=== PATIENT | male | born 1995 | race Caucasian/White ===

== ENCOUNTER 2018-09-09 13:19 | Observation (INO) | payer MEDICAID, SELFPAY ==
[2018-09-09 13:20] VITALS: BP 130/70; PULSE 63; RESP 16; TEMP 37.4; O2SAT 98; BMI 23.4
--- NOTE | 2018-09-09 13:45 | CT_ITS ---
STUDY: CT ABDOMEN AND PELVIS WITHOUT CONTRAST REASON FOR EXAM: Male, 22 years old. Nausea and vomiting. RADIATION DOSAGE (If Supplied By Facility): CTDIvol = ( 6.08 ) mGy, DLP = ( 291.48 ) mGycm TECHNIQUE: Transaxial images were obtained from the dome of the diaphragm to the symphysis pubis without oral contrast, and without intravenous contrast. Sagittal and coronal images were reconstructed. Individualized dose optimization techniques were used for this CT. COMPARISON: None. FINDINGS: Lung bases: Unremarkable. Heart: Unremarkable. Liver: Unremarkable. Gallbladder/biliary ducts: Unremarkable. Pancreas: Unremarkable. Spleen: Unremarkable. Adrenal glands: Unremarkable. Kidneys/ureters/bladder: Nonspecific slightly high density at the bilateral renal medullas (axial image 65 series 2). Nondistended ureters. Normal urinary bladder. Uterus/adnexa/prostate: Unremarkable. Large bowel/small bowel: Mild colonic underdistention/wall thickening. No significant inflammatory changes. No perforation. No pneumatosis. No obstruction. No acute small bowel process. Appendix: Unremarkable (axial image 102 series 2). Gastroesophageal junction/stomach: Unremarkable. Retroperitoneum/lymph nodes: No intra-abdominal free air. No ascites. Shotty para-aortic lymph nodes. Vascular: Unremarkable. Osseous structures: No acute process. Subcutaneous/soft tissues: No acute process. CT/Abdomen/Pelvis without Cont IMPRESSION: Nonspecific bilateral renal medullary high density (possible hyperdense urine, minimal blood products or early nephrocalcinosis; correlate urinalysis) Mild colonic underdistention/wall thickening (unlikely acute colitis) Electronically Signed: Jorge A Mcclure DO at 14:31 EDT Tel , Service support ,
[2018-09-09] MEDS: 0.9% Normal Saline 1,000 ML 1000 ML IV (13:55)
[2018-09-09] MEDS: morphine 8 MG/ML Syringe IV (13:55)
[2018-09-09] MEDS: Ondansetron 4 MG/2 ML Vial IV ×2 (13:56→16:14)
--- NOTE | 2018-09-09 14:13 | ED.VISSUMM ---
- ER Visit Summary Date of Service: 09/09/18 Chief Complaint: [] Lower abdominal pain intractable vomiting since Sunday History of Present Illness: The patient is a 22 M [] indicates that basically he has been in half-way for about 2 years, just discharged 1 week ago from [facility], he was at a friend's barbecue the of the day when he took a bite out of what he thought was some type of a rib meat food and as soon as he swallowed that he felt a sense of nausea and since that time is had intractable nausea and vomiting the food was not tainted was fully cooked it was not spicy it was not ill tasting, he has no history of GI elements, he indicates that protracted vomiting his bowel bladder habits have been unremarkable, he complains of lower abdominal cramping, he is able to take small sips of Gatorade He denies any chronic medical conditions, no abdominal surgeries, no medications Physical Examination: [] His vital signs are unremarkable see the reports General, no distress resting comfortably HEENT is generally unremarkable The neck is supple no adenopathy Cardiovascular, regular rate and rhythm Lungs, clear bilateral Abdomen, soft nontender, he subjectively complains of lower abdominal discomfort right superpubic and left complaining of cramping there is no rebound guarding organomegaly the backs unremarkable upper lower extremities unremarkable Extremities, no clubbing cyanosis or edema Neurologic, awake alert answering questions appropriately moving all 4 extremities Test Results: [] Emergency Department Course and Treatment: [] His age his complaints screening labs obtained CT His screening labs reveal a white count 20,000, there is elevation of the bilirubin to 3, the liver enzymes otherwise unremarkable, the CT scan shows no obvious acute gross abnormality except the radiologist notes that there is seems to be some abnormal texture to the patient's urine, the UA does show a very reddish type urine formal UA parameters are pending, UA culture sent, he is feeling there, he is able take slightly p.o. but given all the above white count the abnormal bilirubin the UA have asked the hospitalist specialist team for further management admission Treatment Plan: [] Disposition: [] Admit pending hospice evaluation Impression: [] Lower abdominal pain, intractable vomiting, leukocytosis, abnormal bilirubin This note was generated with [employer] dictation software. It may contain incorrect words, spelling, and punctuation that were not noted in review of the chart prior to signing ED Disposition - Plan for ED Patient: Referrals: Care Physician,No Primary [Primary Care Provider] -
[2018-09-09 14:25] LABS: Absolute Lymphocyte Count 1.96 X10^3/ul (0.83-4.51); Absolute Neutrophil Count 17.5 X10^3/uL (2.0-7.7); Basophil# 0.02 X10^3/uL; Basophil% 0.1 % (0-1); Eosinophil# 0.02 X10^3/uL; Eosinophils% 0.1 % (0-5); Hematocrit 43.4 % (40-54); Hemoglobin 15.4 g/dl (13.0-16.5); Lymphocyte # 1.96 X10^3/ul (4.0); Lymphocyte % 9.8 % (19-41); Mean Corp Hgb Conc 35.5 g/gl (32-36); Mean Corpuscular Hgb 30.1 pg (27.0-32.0); Mean Corpuscular Volume 84.9 fL (80-94); Mean Platelet Vol. 9.5 fl (6.2-12.0); Monocyte# 0.46 X10^3/uL; Monocyte% 2.3 % (0-10); Neutrophil # 17.52 X10^3/uL (2.7-7.7); Neutrophil % 87.5 % (47-70); POSITIVE COUNT NO; POSITIVE DIFFERENTIAL NO; POSITIVE MORPHOLOGY NO; Platelet Count 249 K/mm3 (150-450); RBC Distribution Width CV 13.3 % (11.6-14.6); RBC Distribution Width SD 41.6 fl (35.1-43.9); Red Blood Count 5.11 M/mm3 (4.6-6.2)
[2018-09-09 14:41] LABS: AST(SGOT) 21 U/L (15-37); Alanine Aminotransfer ALT/SGPT 29 U/L (16-61); Albumin, Serum 4.5 g/dL (3.2-5.0); Alkaline Phosphatase 77 U/L (45-117); Anion Gap 13 (5-15); BUN 21 mg/dL (7-18); BUN/Creat Ratio 23.7 RATIO (10-20); Bilirubin, Direct 0.43 mg/dL (0.00-0.30); Calcium,Total 9.5 mg/dL (8.5-10.1); Chloride 103 mmol/L (98-107); Creatinine, Serum 0.88 mg/dL (0.70-1.30); EST Glomerular Filtration Rate 113 mL/min (>60); Est Glom Filt Rate - Afr Amer 136 mL/min (>60); Estimated Creatinine Clearance 130.55 ml/min; Globulin 3.7 g/dL (2.2-4.2); Glucose 93 mg/dL (74-106); Lipase 72 U/L (73-393); Potassium 2.9 mmol/L (3.5-5.1); Protein, Total 8.2 g/dL (6.4-8.2); Sodium Level 140 mmol/L (136-145)
[2018-09-09] MEDS: 0.9% Normal Saline 1,000 ML 999 ML IV (14:56)
[2018-09-09 15:01] LABS: Red Blood Cells-Urine 0 SEEN /hpf (0-5); Squamous Epithelial Cells - UA 0 SEEN /hpf (0-5)
[2018-09-09 15:13] LABS: Color, Urine Yellow (Yellow); Glucose, Dipstick Normal (Normal); Leukocyte Esterase-Dipstick 25 /ul (Negative); Nitrite-Dipstick Negative (Negative); Occult Blood-Urine 10 /ul (Negative); Protein-Dipstick 30 mg/dl (Negative); Urine Clarity Clear (Clear); Urine Urobilinogen 4 mg/dl (Normal); Urine pH 6.5 (5.0 - 8.0)
[2018-09-09 15:14] LABS: Urine Bilirubin Dipstick 1 mg/dL (Negative)
[2018-09-09 15:15] LABS: Ketone-Dipstick 150 mg/dl (Negative)
[2018-09-09 15:21] LABS: Calcium Oxalate Crystals Ur RARE /hpf (<or=2+); Mucous, Urine 4+ /hpf (<or=2+); White Blood Cells 0-5 SEEN /hpf (0-5)
[2018-09-09 15:22] LABS: Bacteria RARE /hpf (None Seen)
[2018-09-09] MEDS: Ceftriaxone 1 GM/50 ML BAG IV (15:30)
--- NOTE | 2018-09-09 15:32 | HP.PCM_ITS ---
Problem List (1) Acute gastroenteritis Status: Acute (2) Asthma Status: Chronic Qualifiers: Asthma severity: mild Asthma persistence: intermittent Asthma complication type: uncomplicated Qualified Code(s): J45.20 - Mild intermittent asthma, uncomplicated (3) Leucocytosis Status: Acute Qualifiers: Leukocytosis type: unspecified Qualified Code(s): D72.829 - Elevated white blood cell count, unspecified (4) Hypokalemia Status: Acute History of Present Illness Date of Admission: 09/09/18 Chief Complaint: Abdominal pain. Intractable nausea and vomiting The patient is a 22 year old M with past medical history of mild intermittent asthma/seasonal allergies who comes in with complaints of abdominal discomfort, intractable nausea and vomiting ongoing since the evening of 09/07/18. He has been in his usual state of health until the evening of 09/07/18 when he tasted a piece of meat was recently grilled during a barbecue. He says he took a little bite of the meat and started having abdominal discomfort, he has since been throwing up and having crampy abdominal discomfort. He denies any fever but admits to chills. He also complains of some discomfort when he urinates with dark urine. Denies any hematemesis or diarrhea. No recent sick contacts or new medications or recent travels Vitals in the emergency department show temperature of 99.4F, heart rate 63, blood pressure 130/70, respiratory rate was 16, SPO2 was 98% on room air. His RBC count was 20.0, with a left shift, 87.5% neutrophils, hemoglobin 15.4, platelet 249, sodium 140, potassium 2.9, chloride 103, bicarbonate 24, BUN 21, creatinine 0.88, total bilirubin was 3.0, direct bilirubin was 0.43, rest of LFTs were unremarkable, lipase was 72. UA showed clear urine, ketones 150, nitrite negative, leukocyte esterase 25, WBC count 0-5 CT scan of the abdomen and pelvis shows mild colonic underdistention slight wall thickening, otherwise unremarkable Past Medical History Past Medical History (Chronic Problems): Chronic Problems Asthma (Chronic) Allergies Penicillins Allergy (Verified 09/09/18 13:20) Hives Home Medications: Ambulatory Orders Medication Instructions Recorded NK 09/09/18 Surgical History: no surgical history Psychiatric History: No pertinent psych hx Lives: Spouse/ Significant Other Smoking Status: Current every day smoker Tobacco Use: Cigarettes Alcohol: Occasional Drugs: Marijuana - *Family History Maternal History Items: No pertinent history Paternal History Items: No pertinent history Review of Systems Constitutional: Reports: Anorexia, Chills, Malaise, Weakness, Fatigue. Denies: Fever, Night Sweats, Weight Change Eyes: Denies: Blurred vision, Cataracts, Conjunctivae Inflammation, Pain, Redness, Vision Change HEENT: Denies: Difficulty Hearing, Difficulty Swallowing, Head Aches, Hearing Changes, Sinus Drainage, Sore Throat Cardiovascular: Denies: Chest Pain, Claudication, Orthopnea, Palpitations, Paroxysmal Noc. Dyspnea Respiratory: Denies: Cough, Shortness of breath upon exertion, Sputum production Gastrointestinal: Reports: Abdominal Pain, Nausea, Vomiting. Denies: Diarrhea, Dyspepsia, Hematemesis, Hematochezia, Melena Genitourinary: Reports: Dysuria. Denies: Frequency, Hematuria, Incontinence, Nocturia, Retention Musculoskeletal: Denies: Joint stiffness, Joint swelling, Joint Tenderness Skin: Denies: Dryness, Jaundice, Lesions Neurological: Denies: Balance problems, Difficulty swallowing, Focal weakness Psychiatric: Denies: Anxiety, Depression Endocrine: Denies: Change in Body Habitus VTE Information - Inpt Only VTE Present on Admission: No VTE Pharm Prophylaxis ordered?: Yes Patient Problems: Active and Suspected Problems Acute gastroenteritis (Acute) Leucocytosis (Acute) Hypokalemia (Acute) - Physical Exam General: Alert, Oriented x3, Cooperative, No apparent distress HEENT: Atraumatic, PERRLA, EOMI, Normocephalic Oral: Dry Mucosa Neck: Supple, No JVD, Negative Carotid Bruits Lungs: Clear to auscultation, Normal air movement Cardiovascular: Regular rate, Regular Rhythm, Normal S1, Normal S2, No murmurs Abdomen: Bowel Sounds Present, Soft, No Hepato-splenomegaly, Tender - mild generalised tenderness Extremities: No edema Skin: No rashes, No breakdown Musculoskeletal: No Tenderness to Palpation of Joints or Extremities Lymphatic: No Cervical, Supraclavicular, or Inguinal Adenopathy Neurological: Cranial nerves II-XII grossly intact, Neuro grossly intact Psych/Mental Status: Normal Affect, Appropriate Vital Signs Temp Pulse Resp BP Pulse Ox 99.4 F H 63 16 130/70 H 98 09/09/18 13:20 09/09/18 13:20 09/09/18 13:20 09/09/18 13:20 09/09/18 13:20 Oxygen Delivery Method Room Air Weight: 72.121 kg Body Mass Index (BMI) 23.4 Laboratory Tests Past 24 Hrs 09/09/18 09/09/18 09/09/18 14:00 14:00 14:58 WBC 20.0 H RBC 5.11 Hgb 15.4 Hct 43.4 MCV 84.9 MCH 30.1 MCHC 35.5 RDW 13.3 RDW Differential 41.6 Plt Count 249 MPV 9.5 Immature Gran % (Auto) 0.200 Neut % (Auto) 87.5 H Lymph % (Auto) 9.8 L [place] % (Auto) 2.3 Eos % (Auto) 0.1 Baso % (Auto) 0.1 Absolute Neuts (auto) 17.5 H Absolute Lymphs (auto) 1.96 Total Counted Not Reportable Sodium 140 Potassium 2.9 L Chloride 103 Carbon Dioxide 24.0 Anion Gap 13 BUN 21 H Creatinine 0.88 Estim Creat Clear Calc 130.55 Est GFR (MDRD) Af Amer 136 Est GFR (MDRD) Non-Af 113 BUN/Creatinine Ratio 23.7 H Glucose 93 Calcium 9.5 Total Bilirubin 3.00 H Direct Bilirubin 0.43 H AST 21 ALT 29 Alkaline Phosphatase 77 Total Protein 8.2 Albumin 4.5 Globulin 3.7 Lipase 72 L Urine Color Yellow Urine Clarity Clear Urine pH 6.5 Ur Specific [place] 1.020 Urine Protein 30 H Urine Glucose (UA) Normal Urine Ketones 150 H Urine Occult Blood 10 H Urine Nitrite Negative Urine Bilirubin 1 H Urine Urobilinogen 4 H Ur Leukocyte Esterase 25 H Urine RBC Pending Urine WBC Pending Ur Squamous Epith Cells Pending Urine Bacteria Pending Urine Mucus Pending Assessment/Plan All Active Problems Acute gastroenteritis (Acute) Leucocytosis (Acute) Hypokalemia (Acute) 22 year old M with past medical history of mild intermittent asthma/seasonal allergies who comes in with complaints of abdominal discomfort as well as intractable nausea and vomiting ongoing since the evening of 09/07/18. 1. Acute gastroenteritis with intractable nausea and vomiting, without diarrhea, likely viral versus food poisoning Having low-grade fevers, elevated leukocytosis but clinically looks well Plan: Admit to MedSurg, IV fluids, anti-emetic supportive care, will continue with supportive care. 2. Hypokalemia secondary to acute gastroenteritis with intractable nausea and vomiting Will replace IV, check magnesium level. 3. Leukocytosis, likely secondary to viral gastroenteritis, no other signs of sepsis Will trend in a.m. 4. History of asthma/allergies, no signs of acute exacerbation, put on PRN breathing treatments 5. Nicotine dependence, advised to quit, on nicotine patch and gum 6. DVT PPx- early ambulation Code Visit OBSV E&M: 26215 Initial observation care L3
[2018-09-09 15:33] VITALS: BP 112/62; PULSE 66; RESP 16; O2SAT 94
[2018-09-09 16:07] VITALS: BP 110/65; PULSE 61; RESP 16; TEMP 36.9; O2SAT 97
[2018-09-09 16:17] LABS: Magnesium 2.1 mg/dL (1.6-2.6)
[2018-09-09 16:19] VITALS: BMI 23.8
[2018-09-09] MEDS: Potassium Chloride 10mEq/100mL 10 MEQ/100 ML IV.SOLN. 100 MEQ IV BOLUS ×2 (16:44→18:18)
[2018-09-09] MEDS: Acetaminophen 325 MG Tablet 650 MG PO (19:23)
[2018-09-09 19:49] VITALS: BP 131/89; PULSE 56; RESP 18; TEMP 38.4; O2SAT 100
[2018-09-09] MEDS: Albuterol 2.5 MG/3 ML VIAL.NEB. INHALATION (21:46)
[2018-09-09 21:47] VITALS: PULSE 79; RESP 18
[2018-09-09 21:50] VITALS: TEMP 37.8
[2018-09-10] VITALS (7 sets, daily range): BP systolic 120–138; BP diastolic 62–86; PULSE 59–96; RESP 16–20; TEMP 36.9–37.7; O2SAT 98–100
[2018-09-10] MEDS: Acetaminophen 325 MG Tablet 650 MG PO ×3 (02:16→17:09)
[2018-09-10 06:11] LABS: Absolute Lymphocyte Count 2.23 X10^3/ul (0.83-4.51); Absolute Neutrophil Count 8.9 X10^3/uL (2.0-7.7); Basophil# 0.02 X10^3/uL; Basophil% 0.2 % (0-1); Eosinophil# 0.18 X10^3/uL; Eosinophils% 1.4 % (0-5); Hematocrit 37.8 % (40-54); Lymphocyte # 2.23 X10^3/ul (4.0); Lymphocyte % 17.7 % (19-41); Mean Corp Hgb Conc 34.4 g/gl (32-36); Mean Corpuscular Hgb 29.3 pg (27.0-32.0); Mean Corpuscular Volume 85.3 fL (80-94); Mean Platelet Vol. 9.7 fl (6.2-12.0); Monocyte# 1.28 X10^3/uL; Monocyte% 10.2 % (0-10); Neutrophil # 8.85 X10^3/uL (2.7-7.7); Neutrophil % 70.3 % (47-70); Platelet Count 200 K/mm3 (150-450); RBC Distribution Width CV 13.2 % (11.6-14.6); RBC Distribution Width SD 40.8 fl (35.1-43.9); Red Blood Count 4.43 M/mm3 (4.6-6.2); White Blood Count 12.6 K/mm3 (4.4-11.0)
[2018-09-10 06:26] LABS: POSITIVE COUNT NO; POSITIVE DIFFERENTIAL NO; POSITIVE MORPHOLOGY NO
[2018-09-10 06:41] LABS: Anion Gap 10 (5-15); BUN 11 mg/dL (7-18); BUN/Creat Ratio 16.4 RATIO (10-20); Calcium,Total 8.3 mg/dL (8.5-10.1); Chloride 110 mmol/L (98-107); Creatinine, Serum 0.67 mg/dL (0.70-1.30); EST Glomerular Filtration Rate 155 mL/min (>60); Est Glom Filt Rate - Afr Amer 188 mL/min (>60); Estimated Creatinine Clearance 171.47 ml/min; Glucose 84 mg/dL (74-106); Potassium 3.8 mmol/L (3.5-5.1); Sodium Level 143 mmol/L (136-145)
[2018-09-10] MEDS: Albuterol 2.5 MG/3 ML VIAL.NEB. INHALATION ×2 (06:47→17:00)
--- NOTE | 2018-09-10 09:05 | PCM.DC ---
- Discharge Diagnoses Current Active Problems: Current Active and Chronic Problems Acute gastroenteritis (Acute) Asthma (Chronic) Leucocytosis (Acute) Hypokalemia (Acute) You will use the following diet at home:: No restrictions Your food should be the consistency of: Regular Your liquids should be the consistency of: Regular/Thin Discharge Activity: Return to Normal Activity Call your doctor if you observe: Fever of 101 or Higher, Shortness of breath, - - intractable nausea and vomiting. Allergies/Adverse Reactions: Allergies Penicillins Allergy (Verified 09/09/18 13:20) Hives Medications to take at Discharge Acetaminophen [Tylenol Tablet] 650 mg PO Q6H PRN PRN tablet 09/10/18 Albuterol Inhaler [Ventolin Hfa] 1 - 2 puff INHALATION Q4H PRN PRN #1 inhaler 09/10/18 The following prescriptions were given: Albuterol Inhaler [Ventolin Hfa] 1 - 2 puff INHALATION Q4H PRN PRN #1 inhaler PRN Reason: Shortness Of Breath Primary Care Physician: Care Physician,No Primary [Primary Care Provider] - Test Results: Test results from this visit will be discussed in further detail at your follow-up appointment, if applicable. Please Follow Up With: Harjindre Lira MD When: or another primary care physician. 2-4 weeks. Proposed Discharge Date: 09/10/18
--- NOTE | 2018-09-10 09:09 | DCINST_ITS ---
- Discharge Diagnoses Current Active Problems: Current Active and Chronic Problems Acute gastroenteritis (Acute) Asthma (Chronic) Leucocytosis (Acute) Hypokalemia (Acute) You will use the following diet at home:: No restrictions Your food should be the consistency of: Regular Your liquids should be the consistency of: Regular/Thin Discharge Activity: Return to Normal Activity Call your doctor if you observe: Fever of 101 or Higher, Shortness of breath, - - intractable nausea and vomiting. Allergies/Adverse Reactions: Allergies Penicillins Allergy (Verified 09/09/18 13:20) Hives Medications to take at Discharge Acetaminophen [Tylenol Tablet] 650 mg PO Q6H PRN PRN tablet 09/10/18 Albuterol Inhaler [Ventolin Hfa] 1 - 2 puff INHALATION Q4H PRN PRN #1 inhaler 09/10/18 The following prescriptions were given: Albuterol Inhaler [Ventolin Hfa] 1 - 2 puff INHALATION Q4H PRN PRN #1 inhaler PRN Reason: Shortness Of Breath Primary Care Physician: Care Physician,No Primary [Primary Care Provider] - Test Results: Test results from this visit will be discussed in further detail at your follow- up appointment, if applicable. Please Follow Up With: Harjinder Lira MD When: or another primary care physician. 2-4 weeks. Proposed Discharge Date: 09/10/18
--- NOTE | 2018-09-10 09:13 | DS.PCM_ITS ---
Discharge Date and Diagnosis - Problem List Patient Problems: Active and Suspected Problems Acute gastroenteritis (Acute) Leucocytosis (Acute) Hypokalemia (Acute) Date of Admission: 09/09/18 Date of Discharge: 09/10/18 - Primary Discharge Diagnosis Active and Suspected Problems Acute gastroenteritis (Acute) Leucocytosis (Acute) Hypokalemia (Acute) - Secondary Discharge Diagnosis Chronic Problems Asthma (Chronic) Hospital Course and Treatment Imaging Results: Clinical Impression(s) from Imaging Studies Abdomen/Pelvis CT 09/09/18 13:45 IMPRESSION: Nonspecific bilateral renal medullary high density (possible hyperdense urine, minimal blood products or early nephrocalcinosis; correlate urinalysis) Mild colonic underdistention/wall thickening (unlikely acute colitis) Electronically Signed: Jorge A Mcclure DO at 14:31 EDT Tel , Service support , Operations: None Procedures: None Summary of Care Provided: The patient is a 22 year old M presents with intractable nausea and vomiting since . Also had abdominal pain. Present on and was found to be hypokalemic, with a potassium of 2.9, had leukocytosis of 20,000 with a left shift. CT abdomen pelvis was unremarkable. [place] that this is likely a viral gastroenteritis. Patient did also has some upper respiratory infections on top of that. Today, the patient is feeling much better and is no longer having any nausea or vomiting or diarrhea. Patient feels that he can be discharged. Patient did receive potassium replacement and currently his potassium is 3.8. Patient did have slightly elevated bilirubins but likely tied in with the viral gastroenteritis. Patient is not jaundiced nor does he have icterus. [] Patient Problems: Active and Suspected Problems Acute gastroenteritis (Acute) Leucocytosis (Acute) Hypokalemia (Acute) - Physical Exam General: Alert, No apparent distress HEENT: Atraumatic, Normocephalic Oral: Moist Mucosa, No Gingival or Mucosal Lesions/ Ulcerations Neck: No Nodes, Thyroid Normal Size and Texture Lungs: Clear to auscultation, Normal air movement, No rhonchi, No wheeze Cardiovascular: Regular rate, Regular Rhythm, Normal S1, Normal S2, No murmurs Abdomen: Bowel Sounds Present, Soft, Non Tender, Non-Distended, No Hepato- splenomegaly Extremities: No edema, No Calf Tenderness Vital Signs Temp Pulse Resp BP Pulse Ox 37.3 C 72 20 H 123/64 H 100 09/10/18 02:20 09/10/18 06:48 09/10/18 06:48 09/10/18 02:20 09/10/18 02:20 Oxygen Delivery Method Room Air Weight: 73.255 kg Body Mass Index (BMI) 23.8 Intake and Output for Last 24 Hours 09/08/18 09/09/18 09/10/18 23:59 23:59 23:59 Intake Total 1420 / 1420 987 / 987 Output Total 250 / 250 250 / 250 Balance 1170 / 1170 737 / 737 Laboratory Tests Past 24 Hrs 09/09/18 09/09/18 09/09/18 14:00 14:00 14:00 WBC 20.0 H RBC 5.11 Hgb 15.4 Hct 43.4 MCV 84.9 MCH 30.1 MCHC 35.5 RDW 13.3 RDW Differential 41.6 Plt Count 249 MPV 9.5 Immature Gran % (Auto) 0.200 Neut % (Auto) 87.5 H Lymph % (Auto) 9.8 L [place] % (Auto) 2.3 Eos % (Auto) 0.1 Baso % (Auto) 0.1 Absolute Neuts (auto) 17.5 H Absolute Lymphs (auto) 1.96 Total Counted Not Reportable Sodium 140 Potassium 2.9 L Chloride 103 Carbon Dioxide 24.0 Anion Gap 13 BUN 21 H Creatinine 0.88 Estim Creat Clear Calc 130.55 Est GFR (MDRD) Af Amer 136 Est GFR (MDRD) Non-Af 113 BUN/Creatinine Ratio 23.7 H Glucose 93 Calcium 9.5 Magnesium 2.1 Total Bilirubin 3.00 H Direct Bilirubin 0.43 H AST 21 ALT 29 Alkaline Phosphatase 77 Total Protein 8.2 Albumin 4.5 Globulin 3.7 Lipase 72 L Urine Color Urine Clarity Urine pH Ur Specific [place] Urine Protein Urine Glucose (UA) Urine Ketones Urine Occult Blood Urine Nitrite Urine Bilirubin Urine Urobilinogen Ur Leukocyte Esterase Urine RBC Urine WBC Ur Squamous Epith Cells Calcium Oxalate Crystal Urine Bacteria Urine Mucus 09/09/18 09/10/18 09/10/18 14:58 05:40 05:40 WBC 12.6 H RBC 4.43 L Hgb 13.0 Hct 37.8 L MCV 85.3 MCH 29.3 MCHC 34.4 RDW 13.2 RDW Differential 40.8 Plt Count 200 MPV 9.7 Immature Gran % (Auto) 0.200 Neut % (Auto) 70.3 H Lymph % (Auto) 17.7 L [place] % (Auto) 10.2 H Eos % (Auto) 1.4 Baso % (Auto) 0.2 Absolute Neuts (auto) 8.9 H Absolute Lymphs (auto) 2.23 Total Counted Not Reportable Sodium 143 Potassium 3.8 Chloride 110 H Carbon Dioxide 23.0 Anion Gap 10 BUN 11 Creatinine 0.67 L Estim Creat Clear Calc 171.47 Est GFR (MDRD) Af Amer 188 Est GFR (MDRD) Non-Af 155 BUN/Creatinine Ratio 16.4 Glucose 84 Calcium 8.3 L Magnesium Total Bilirubin Direct Bilirubin AST ALT Alkaline Phosphatase Total Protein Albumin Globulin Lipase Urine Color Yellow Urine Clarity Clear Urine pH 6.5 Ur Specific [place] 1.020 Urine Protein 30 H Urine Glucose (UA) Normal Urine Ketones 150 H Urine Occult Blood 10 H Urine Nitrite Negative Urine Bilirubin 1 H Urine Urobilinogen 4 H Ur Leukocyte Esterase 25 H Urine RBC 0 SEEN Urine WBC 0-5 SEEN Ur Squamous Epith Cells 0 SEEN Calcium Oxalate Crystal RARE Urine Bacteria RARE Urine Mucus 4+ Discharge Diet: No Restrictions Discharge Activity: Return to Normal Activity Call your doctor if you observe: Fever of 101 or Higher, Shortness of breath, - - intractable nausea and vomiting. Home Medications: Medications to take at Discharge Acetaminophen [Tylenol Tablet] 650 mg PO Q6H PRN PRN tablet 09/10/18 Albuterol Inhaler [Ventolin Hfa] 1 - 2 puff INHALATION Q4H PRN PRN #1 inhaler 09/10/18 Following Prescrptions Were Given to Patient: Albuterol Inhaler [Ventolin Hfa] 1 - 2 puff INHALATION Q4H PRN PRN #1 inhaler PRN Reason: Shortness Of Breath Primary Care Physician: Care Physician,No Primary [Primary Care Provider] - Please Follow Up With: Harjinder Lira MD When: or another primary care physician. 2-4 weeks. Disposition: Home Minutes spent on discharge:: 25 Patient Condition:: Good Medical Necessity - Tobacco Use Smoking Status: Current every day smoker Tobacco Use: Cigarettes Meaningful Use Info Meaningful Use Diagnoses (Choose all that apply): None applicable Code Visit OBSV E&M: 76677 Observation care discharge
[2018-09-10] MEDS: Ondansetron 4 MG/2 ML Vial IV ×2 (10:14→20:15)
--- NOTE | 2018-09-10 10:58 | NURSING ---
pt ate 3 bites of plain toast and had sudden onset of severe pain to abd. medicated for nausea but shortly after, pt began having bile colored emesis. pt is in the position and is tearful due to pain. rates pain 10/10 stating it is worse than when he came in to the ER. vital signs stable. Dr Arevalo notified and new order placed for abd x-ray.
[2018-09-10] MEDS: proCHLORPERazine 10 MG/2 ML Vial 5 MG IV ×2 (11:21→17:16)
--- NOTE | 2018-09-10 12:36 | RAD_ITS ---
STUDY: X-RAY - ABDOMEN/PELVIS REASON FOR EXAM: Male, 22 years old. Abdominal pain. Vomiting. TECHNIQUE: Two AP supine views of the abdomen and pelvis. COMPARISON: 09/09/2018. FINDINGS: Normal visualized lung bases. Nonobstructive bowel gas pattern. No intra-abdominal free air. Pelvic phleboliths. Normal visualized osseous structures. RAD/Abdomen Single View IMPRESSION: Nonobstructive bowel gas pattern Electronically Signed: Jorge A Mcclure DO at 12:56 EDT Tel , Service support ,
--- NOTE | 2018-09-10 13:56 | PCM.PN.HOSP ---
Patient Problems: Active and Suspected Problems Acute gastroenteritis (Acute) Leucocytosis (Acute) Hypokalemia (Acute) Subjective: was feeling better. Per RN, ate 3 bites of toast, started vomiting and had 10/10 abdominal pain. Objective: evaluated prior to abdominal pain and recurrent vomiting. Vitals/I&O's: Vital Signs Temp Pulse Resp BP Pulse Ox 37.7 C H 60 18 120/65 100 09/10/18 10:57 09/10/18 10:57 09/10/18 10:57 09/10/18 10:57 09/10/18 10:57 Oxygen Delivery Method Room Air Weight: 73.255 kg Body Mass Index (BMI) 23.8 Intake and Output for Last 24 Hours 09/08/18 09/09/18 09/10/18 23:59 23:59 23:59 Intake Total 1420 / 1420 1745 / 1745 Output Total 250 / 250 750 / 750 Balance 1170 / 1170 995 / 995 General: Alert, No apparent distress HEENT: Atraumatic, Normocephalic Oral: Moist Mucosa, No Gingival or Mucosal Lesions/ Ulcerations Neck: No Nodes, Thyroid Normal Size and Texture Lungs: Clear to auscultation, Normal air movement, No rhonchi, No wheeze Cardiovascular: Regular rate, Regular Rhythm, Normal S1, Normal S2, No murmurs Abdomen: Bowel Sounds Present, Soft, Non Tender, Non-Distended, No Hepato-splenomegaly Laboratory Results 09/09/18 14:00: WBC 20.0 H, RBC 5.11, Hgb 15.4, Hct 43.4, MCV 84.9, MCH 30.1, MCHC 35.5, RDW 13.3, RDW Differential 41.6, Plt Count 249, MPV 9.5, Immature Gran % (Auto) 0.200, Neut % (Auto) 87.5 H, Lymph % (Auto) 9.8 L, [place] % (Auto) 2.3, Eos % (Auto) 0.1, Baso % (Auto) 0.1, Absolute Neuts (auto) 17.5 H, Absolute Lymphs (auto) 1.96, Total Counted Not Reportable 09/09/18 14:00: Sodium 140, Potassium 2.9 L, Chloride 103, Carbon Dioxide 24.0, Anion Gap 13, BUN 21 H, Creatinine 0.88, Estim Creat Clear Calc 130.55, Est GFR (MDRD) Af Amer 136, Est GFR (MDRD) Non-Af 113, BUN/Creatinine Ratio 23.7 H, Glucose 93, Calcium 9.5, Total Bilirubin 3.00 H, Direct Bilirubin 0.43 H, AST 21, ALT 29, Alkaline Phosphatase 77, Total Protein 8.2, Albumin 4.5, Globulin 3.7, Lipase 72 L 09/09/18 14:00: Magnesium 2.1 09/09/18 14:58: Urine Color Yellow, Urine Clarity Clear, Urine pH 6.5, Ur Specific [place] 1.020, Urine Protein 30 H, Urine Glucose (UA) Normal, Urine Ketones 150 H, Urine Occult Blood 10 H, Urine Nitrite Negative, Urine Bilirubin 1 H, Urine Urobilinogen 4 H, Ur Leukocyte Esterase 25 H, Urine RBC 0 SEEN, Urine WBC 0-5 SEEN, Ur Squamous Epith Cells 0 SEEN, Calcium Oxalate Crystal RARE, Urine Bacteria RARE, Urine Mucus 4+ 09/10/18 05:40: Sodium 143, Potassium 3.8, Chloride 110 H, Carbon Dioxide 23.0, Anion Gap 10, BUN 11, Creatinine 0.67 L, Estim Creat Clear Calc 171.47, Est GFR (MDRD) Af Amer 188, Est GFR (MDRD) Non-Af 155, BUN/Creatinine Ratio 16.4, Glucose 84, Calcium 8.3 L 09/10/18 05:40: WBC 12.6 H, RBC 4.43 L, Hgb 13.0, Hct 37.8 L, MCV 85.3, MCH 29.3, MCHC 34.4, RDW 13.2, RDW Differential 40.8, Plt Count 200, MPV 9.7, Immature Gran % (Auto) 0.200, Neut % (Auto) 70.3 H, Lymph % (Auto) 17.7 L, [place] % (Auto) 10.2 H, Eos % (Auto) 1.4, Baso % (Auto) 0.2, Absolute Neuts (auto) 8.9 H, Absolute Lymphs (auto) 2.23, Total Counted Not Reportable 09/10/18 11:24: Urine Amphetamine Pending, U Amphetamines Confirm Pending, Urine Cocaine Confirm Pending, U Cocaine Metab Screen Pending, U Benzoylecgonine GC/MS Pending, Urine Ethyl Alcohol Pending Current Medications Acetaminophen (Tylenol) 650 mg PO Q6H PRN PRN PRN Reason: Mild Pain (1-3)/Temp > 100.7 F Last Admin: 09/10/18 09:14 Dose: 650 mg Al Hydroxide/Mg Hydroxide (Mylanta Ii) 30 ml PO Q6H PRN PRN PRN Reason: Gastric Burning Albuterol Sulfate (Ventolin Aerosols) 2.5 mg INHALATION Q2H PRN PRN Reason: SOB &/OR WHEEZING Last Admin: 09/10/18 06:47 Dose: 2.5 mg Potassium Chloride/Sodium Chloride () 1,000 mls @ 100 mls/hr IV .Q10H JENNIFER Last Admin: 09/10/18 02:14 Dose: 100 mls/hr Famotidine 20 mg/ Sodium (Chloride) 10 mls @ 300 mls/hr IV Q12 JENNIFER Last Admin: 09/10/18 10:47 Dose: 300 mls/hr Ketorolac Tromethamine (Toradol) 30 mg IV Q6H PRN PRN PRN Reason: PAIN Stop: 09/15/18 13:29 Nicotine (Nicoderm Cq (Pbkc)) 21 mg TRANSDERM. DAILY JENNIFER Last Admin: 09/10/18 09:14 Dose: 21 mg Nicotine Polacrilex (Rugby Nicotine (Bkc)) 2 mg PO Q2H PRN PRN PRN Reason: Nicotine Craving Ondansetron HCl (Zofran) 4 mg IV Q8H PRN PRN PRN Reason: NAUSEA/VOMITING Last Admin: 09/10/18 10:14 Dose: 4 mg Prochlorperazine Edisylate (Compazine Iv) 5 mg IV Q6H PRN PRN PRN Reason: NAUSEA/VOMITING Last Admin: 09/10/18 11:21 Dose: 5 mg Sodium Chloride () 5 - 15 ml IV UD PRN PRN Reason: SALINE FLUSH Medical Necessity - Tobacco Use Smoking Status: Current every day smoker Tobacco Use: Cigarettes Assessment/Plan All Active Problems Acute gastroenteritis (Acute) Leucocytosis (Acute) Hypokalemia (Acute) 1. gastroenteritis was feeling better, then regressed AXR was unremarkable supportive mgmt minimize narcotics check UDS to eval THC (THC hyperemesis syndrome) Code Visit Inpatient E&M: 02110 Subs Hosp L2
--- NOTE | 2018-09-10 14:00 | PN_ITS ---
Patient Problems: Active and Suspected Problems Acute gastroenteritis (Acute) Leucocytosis (Acute) Hypokalemia (Acute) Subjective: was feeling better. Per RN, ate 3 bites of toast, started vomiting and had 10/10 abdominal pain. Objective: evaluated prior to abdominal pain and recurrent vomiting. Vitals/I&O's: Vital Signs Temp Pulse Resp BP Pulse Ox 37.7 C H 60 18 120/65 100 09/10/18 10:57 09/10/18 10:57 09/10/18 10:57 09/10/18 10:57 09/10/18 10:57 Oxygen Delivery Method Room Air Weight: 73.255 kg Body Mass Index (BMI) 23.8 Intake and Output for Last 24 Hours 09/08/18 09/09/18 09/10/18 23:59 23:59 23:59 Intake Total 1420 / 1420 1745 / 1745 Output Total 250 / 250 750 / 750 Balance 1170 / 1170 995 / 995 General: Alert, No apparent distress HEENT: Atraumatic, Normocephalic Oral: Moist Mucosa, No Gingival or Mucosal Lesions/ Ulcerations Neck: No Nodes, Thyroid Normal Size and Texture Lungs: Clear to auscultation, Normal air movement, No rhonchi, No wheeze Cardiovascular: Regular rate, Regular Rhythm, Normal S1, Normal S2, No murmurs Abdomen: Bowel Sounds Present, Soft, Non Tender, Non-Distended, No Hepato- splenomegaly Laboratory Results 09/09/18 14:00: WBC 20.0 H, RBC 5.11, Hgb 15.4, Hct 43.4, MCV 84.9, MCH 30.1, MCHC 35.5, RDW 13.3, RDW Differential 41.6, Plt Count 249, MPV 9.5, Immature Gran % (Auto) 0.200, Neut % (Auto) 87.5 H, Lymph % (Auto) 9.8 L, [place] % (Auto) 2.3, Eos % (Auto) 0.1, Baso % (Auto) 0.1, Absolute Neuts (auto) 17.5 H, Absolute Lymphs (auto) 1.96, Total Counted Not Reportable 09/09/18 14:00: Sodium 140, Potassium 2.9 L, Chloride 103, Carbon Dioxide 24.0, Anion Gap 13, BUN 21 H, Creatinine 0.88, Estim Creat Clear Calc 130.55, Est GFR (MDRD) Af Amer 136, Est GFR (MDRD) Non-Af 113, BUN/Creatinine Ratio 23.7 H, Glucose 93, Calcium 9.5, Total Bilirubin 3.00 H, Direct Bilirubin 0.43 H, AST 2 1, ALT 29, Alkaline Phosphatase 77, Total Protein 8.2, Albumin 4.5, Globulin 3.7, Lipase 72 L 09/09/18 14:00: Magnesium 2.1 09/09/18 14:58: Urine Color Yellow, Urine Clarity Clear, Urine pH 6.5, Ur Specific [place] 1.020, Urine Protein 30 H, Urine Glucose (UA) Normal, Urine Ketones 150 H, Urine Occult Blood 10 H, Urine Nitrite Negative, Urine Bilirubin 1 H, Urine Urobilinogen 4 H, Ur Leukocyte Esterase 25 H, Urine RBC 0 SEEN, Urine WBC 0-5 SEEN, Ur Squamous Epith Cells 0 SEEN, Calcium Oxalate Crystal RARE, Urine Bacteria RARE, Urine Mucus 4+ 09/10/18 05:40: Sodium 143, Potassium 3.8, Chloride 110 H, Carbon Dioxide 23.0, Anion Gap 10, BUN 11, Creatinine 0.67 L, Estim Creat Clear Calc 171.47, Est GFR (MDRD) Af Amer 188, Est GFR (MDRD) Non-Af 155, BUN/Creatinine Ratio 16.4, Glucose 84, Calcium 8.3 L 09/10/18 05:40: WBC 12.6 H, RBC 4.43 L, Hgb 13.0, Hct 37.8 L, MCV 85.3, MCH 29.3, MCHC 34.4, RDW 13.2, RDW Differential 40.8, Plt Count 200, MPV 9.7, Immature Gran % (Auto) 0.200, Neut % (Auto) 70.3 H, Lymph % (Auto) 17.7 L, [place] % (Auto) 10.2 H, Eos % (Auto) 1.4, Baso % (Auto) 0.2, Absolute Neuts (auto) 8.9 H, Absolute Lymphs (auto) 2.23, Total Counted Not Reportable 09/10/18 11:24: Urine Amphetamine Pending, U Amphetamines Confirm Pending, Urine Cocaine Confirm Pending, U Cocaine Metab Screen Pending, U Benzoylecgonine GC/MS Pending, Urine Ethyl Alcohol Pending Current Medications Acetaminophen (Tylenol) 650 mg PO Q6H PRN PRN PRN Reason: Mild Pain (1-3)/Temp > 100.7 F Last Admin: 09/10/18 09:14 Dose: 650 mg Al Hydroxide/Mg Hydroxide (Mylanta Ii) 30 ml PO Q6H PRN PRN PRN Reason: Gastric Burning Albuterol Sulfate (Ventolin Aerosols) 2.5 mg INHALATION Q2H PRN PRN Reason: SOB &/OR WHEEZING Last Admin: 09/10/18 06:47 Dose: 2.5 mg Potassium Chloride/Sodium Chloride () 1,000 mls @ 100 mls/hr IV .Q10H JENNIFER Last Admin: 09/10/18 02:14 Dose: 100 mls/hr Famotidine 20 mg/ Sodium (Chloride) 10 mls @ 300 mls/hr IV Q12 JENNIFER Last Admin: 09/10/18 10:47 Dose: 300 mls/hr Ketorolac Tromethamine (Toradol) 30 mg IV Q6H PRN PRN PRN Reason: PAIN Stop: 09/15/18 13:29 Nicotine (Nicoderm Cq (Pbkc)) 21 mg TRANSDERM. DAILY JENNIFER Last Admin: 09/10/18 09:14 Dose: 21 mg Nicotine Polacrilex ([place] Nicotine (Bkc)) 2 mg PO Q2H PRN PRN PRN Reason: Nicotine Craving Ondansetron HCl (Zofran) 4 mg IV Q8H PRN PRN PRN Reason: NAUSEA/VOMITING Last Admin: 09/10/18 10:14 Dose: 4 mg Prochlorperazine Edisylate (Compazine Iv) 5 mg IV Q6H PRN PRN PRN Reason: NAUSEA/VOMITING Last Admin: 09/10/18 11:21 Dose: 5 mg Sodium Chloride () 5 - 15 ml IV UD PRN PRN Reason: SALINE FLUSH Medical Necessity - Tobacco Use Smoking Status: Current every day smoker Tobacco Use: Cigarettes Assessment/Plan All Active Problems Acute gastroenteritis (Acute) Leucocytosis (Acute) Hypokalemia (Acute) 1. gastroenteritis * was feeling better, then regressed * AXR was unremarkable * supportive mgmt * minimize narcotics * check UDS to eval THC (THC hyperemesis syndrome) Code Visit Inpatient E&M: 04687 Subs Hosp L2
[2018-09-10] MEDS: Ketorolac 30 MG/ML Syringe IV ×2 (14:10→20:14)
[2018-09-10] MEDS: 0.9% NaCl Peripheral Flush Adult/Peds IV (14:16)
[2018-09-10] MEDS: Dicyclomine 10 MG Capsule PO (21:59)
[2018-09-11] MEDS: proCHLORPERazine 10 MG/2 ML Vial 5 MG IV ×2 (01:52→08:44)
[2018-09-11] MEDS: Mag Hydrox/Al Hydrox/Simeth 30 ML UDC PO (02:10)
[2018-09-11] MEDS: Ketorolac 30 MG/ML Syringe IV ×2 (02:10→08:50)
[2018-09-11 02:14] VITALS: BP 122/73; PULSE 66; RESP 16; TEMP 37.1; O2SAT 99
[2018-09-11 02:55] VITALS: PULSE 73; RESP 16
[2018-09-11] MEDS: Albuterol 2.5 MG/3 ML VIAL.NEB. INHALATION (02:55)
[2018-09-11] MEDS: Ondansetron 4 MG/2 ML Vial IV (05:50)
[2018-09-11 06:41] LABS: Absolute Neutrophil Count 8.9 X10^3/uL (2.0-7.7); Basophil# 0.02 X10^3/uL; Basophil% 0.2 % (0-1); Eosinophil# 0.16 X10^3/uL; Eosinophils% 1.4 % (0-5); Hematocrit 38.4 % (40-54); Hemoglobin 13.2 g/dl (13.0-16.5); Lymphocyte % 11.3 % (19-41); Mean Corp Hgb Conc 34.4 g/gl (32-36); Mean Corpuscular Hgb 29.3 pg (27.0-32.0); Mean Corpuscular Volume 85.3 fL (80-94); Mean Platelet Vol. 10.1 fl (6.2-12.0); Monocyte% 9.6 % (0-10); Neutrophil # 8.85 X10^3/uL (2.7-7.7); Neutrophil % 77.1 % (47-70); Platelet Count 211 K/mm3 (150-450); RBC Distribution Width CV 13.2 % (11.6-14.6); RBC Distribution Width SD 40.9 fl (35.1-43.9); White Blood Count 11.5 K/mm3 (4.4-11.0)
[2018-09-11 06:51] LABS: POSITIVE COUNT NO; POSITIVE DIFFERENTIAL NO; POSITIVE MORPHOLOGY NO
[2018-09-11 06:58] LABS: Anion Gap 9 (5-15); BUN 5 mg/dL (7-18); BUN/Creat Ratio 8.7 RATIO (10-20); Calcium,Total 8.5 mg/dL (8.5-10.1); Chloride 110 mmol/L (98-107); Creatinine, Serum 0.58 mg/dL (0.70-1.30); EST Glomerular Filtration Rate 185 mL/min (>60); Est Glom Filt Rate - Afr Amer 224 mL/min (>60); Estimated Creatinine Clearance 198.08 ml/min; Glucose 79 mg/dL (74-106); Potassium 3.4 mmol/L (3.5-5.1); Sodium Level 142 mmol/L (136-145)
[2018-09-11 07:29] VITALS: BP 119/65; PULSE 87; RESP 18; TEMP 36.6; O2SAT 98
[2018-09-11] MEDS: 0.9% NaCl Peripheral Flush Adult/Peds IV ×2 (08:45→09:45)
--- NOTE | 2018-09-11 10:19 | PCM.DC.SUM ---
Discharge Date and Diagnosis - Problem List Patient Problems: Active and Suspected Problems Acute gastroenteritis (Acute) Leucocytosis (Acute) Hypokalemia (Acute) Date of Admission: 09/09/18 Date of Discharge: 09/11/18 - Primary Discharge Diagnosis Active and Suspected Problems Acute gastroenteritis (Acute) Leucocytosis (Acute) Hypokalemia (Acute) - Secondary Discharge Diagnosis Chronic Problems Asthma (Chronic) Hospital Course and Treatment Imaging Results: Clinical Impression(s) from Imaging Studies Abdomen/Pelvis CT 09/09/18 13:45 IMPRESSION: Nonspecific bilateral renal medullary high density (possible hyperdense urine, minimal blood products or early nephrocalcinosis; correlate urinalysis) Mild colonic underdistention/wall thickening (unlikely acute colitis) Electronically Signed: Jorge A Mcclure DO at 14:31 EDT Tel , Service support , KUB X-Ray 09/10/18 12:36 IMPRESSION: Nonobstructive bowel gas pattern Electronically Signed: Jorge A Mcclure DO at 12:56 EDT Tel , Service support , Operations: None Procedures: None Summary of Care Provided: The patient is a 22 year old M presents with intractable nausea vomiting diarrhea. Patient was feeling better on the and plan is for patient be discharged but had some eggs and started vomiting again and was bilious per RN description. The discharge was held. Patient does continue to be on clear diet which she is tolerating. Patient advised to just advance his diet slowly as he tolerates. Patient be discharged with prescription for Zofran. Etiology is likely viral gastroenteritis. Patient had a CAT scan as well as abdominal x-ray which were unremarkable for any mechanical issues causing his symptoms. [] Patient Problems: Active and Suspected Problems Acute gastroenteritis (Acute) Leucocytosis (Acute) Hypokalemia (Acute) - Physical Exam General: Alert, No apparent distress HEENT: Atraumatic, Normocephalic Oral: Moist Mucosa, No Gingival or Mucosal Lesions/ Ulcerations Lungs: Clear to auscultation, Normal air movement, No rhonchi, No wheeze Cardiovascular: Regular rate, Regular Rhythm, Normal S1, Normal S2, No murmurs Abdomen: Bowel Sounds Present, Soft, Non Tender, Non-Distended, No Hepato-splenomegaly Vital Signs Temp Pulse Resp BP Pulse Ox 36.6 C 87 18 119/65 98 09/11/18 07:29 09/11/18 07:29 09/11/18 07:29 09/11/18 07:29 09/11/18 07:29 Oxygen Delivery Method Room Air Weight: 73.255 kg Body Mass Index (BMI) 23.8 Intake and Output for Last 24 Hours 09/09/18 09/10/18 09/11/18 23:59 23:59 23:59 Intake Total 1420 / 1420 2372 / 2372 1216 / 1216 Output Total 250 / 250 1000 / 1000 600 / 600 Balance 1170 / 1170 1372 / 1372 616 / 616 Microbiology Past 72 Hours 09/09/18 11:00 Urine Culture - Final Urine, Clean Catch Mixed Gram Positive Organisms Laboratory Tests Past 24 Hrs 09/10/18 09/11/18 09/11/18 11:24 05:28 05:28 WBC 11.5 H RBC 4.50 L Hgb 13.2 Hct 38.4 L MCV 85.3 MCH 29.3 MCHC 34.4 RDW 13.2 RDW Differential 40.9 Plt Count 211 MPV 10.1 Immature Gran % (Auto) 0.400 Neut % (Auto) 77.1 H Lymph % (Auto) 11.3 L [place] % (Auto) 9.6 Eos % (Auto) 1.4 Baso % (Auto) 0.2 Absolute Neuts (auto) 8.9 H Absolute Lymphs (auto) 1.30 Total Counted Not Reportable Sodium 142 Potassium 3.4 L Chloride 110 H Carbon Dioxide 23.0 Anion Gap 9 BUN 5 L Creatinine 0.58 L Estim Creat Clear Calc 198.08 Est GFR (MDRD) Af Amer 224 Est GFR (MDRD) Non-Af 185 BUN/Creatinine Ratio 8.7 L Glucose 79 Calcium 8.5 Urine Amphetamine Pending U Amphetamines Confirm Pending Urine Cocaine Confirm Pending U Cocaine Metab Screen Pending U Benzoylecgonine GC/MS Pending Urine Ethyl Alcohol Pending Discharge Diet: No Restrictions Discharge Activity: Return to Normal Activity Call your doctor if you observe: Fever of 101 or Higher, Shortness of breath, - - intractable nausea and vomiting. Home Medications: Medications to take at Discharge Acetaminophen [Tylenol Tablet] 650 mg PO Q6H PRN PRN tablet 09/10/18 Albuterol Inhaler [Ventolin Hfa] 1 - 2 puff INHALATION Q4H PRN PRN #1 inhaler 09/10/18 Ondansetron [Zofran] 8 mg PO Q8H PRN PRN #15 tablet 09/11/18 Following Prescrptions Were Given to Patient: Albuterol Inhaler [Ventolin Hfa] 1 - 2 puff INHALATION Q4H PRN PRN #1 inhaler PRN Reason: Shortness Of Breath Ondansetron [Zofran] 8 mg PO Q8H PRN PRN #15 tablet PRN Reason: Nausea Primary Care Physician: Care Physician,No Primary [Primary Care Provider] - Please Follow Up With: Harjinder Lira MD When: or another primary care physician. 2-4 weeks. Disposition: Home Minutes spent on discharge:: 24 Patient Condition:: Good Medical Necessity - Tobacco Use Smoking Status: Current every day smoker Tobacco Use: Cigarettes Meaningful Use Info Meaningful Use Diagnoses (Choose all that apply): None applicable Code Visit Inpatient E&M: 88855 Disch Hosp
[2018-09-11 11:31] VITALS: BP 119/65; PULSE 87; RESP 18; TEMP 36.6; O2SAT 98
== END 2018-09-11 11:35 | disposition home or self-care (01) ==
LOC: ED 14:45 → MS3 21:24
PROVIDERS: Internal Medicine; Admitting Provider Student in an Organized Health Care Education/Training Program; Emergency Provider Emergency Medicine; Referring Provider Student in an Organized Health Care Education/Training Program
DX: K52.9 Noninfective gastroenteritis and colitis, unspecified (principal); D72.829 Elevated white blood cell count, unspecified; E87.6 Hypokalemia; J45.20 Mild intermittent asthma, uncomplicated; F17.210 Nicotine dependence, cigarettes, uncomplicated; T45.0X5A Adverse effect of antiallergic and antiemetic drugs, initial encounter; G25.79 Other drug induced movement disorders; R47.89 Other speech disturbances
CPT/HCPCS: 36415; 74018; 74176; 80048; 80076; 80307; 81001; 83690; 83735; 85025; 87086; 87088; 94640; 96361; 96365; 96374; 96375; 96376; 99218; 99283; 99284; J7030; A4216; G0378; J2405; J3490

== ENCOUNTER 2018-09-11 15:59 | Emergency (ER) | payer MEDICAID, SELFPAY ==
[2018-09-09 16:19] VITALS: BMI 23.8
[2018-09-11 15:59] VITALS: BP 121/80; PULSE 100; RESP 16; TEMP 37.4; O2SAT 97; BMI 24.6
--- NOTE | 2018-09-11 16:14 | ED.VISSUMM ---
- ER Visit Summary Date of Service: 09/11/18 Chief Complaint: [Difficulty speaking] History of Present Illness: The patient is a 22 M [resents to the emergency department with difficult time speaking that started this afternoon. Patient states that he had just taken some Zofran when he developed some cramping in his lower abdomen. Patient then subsequently developed difficulty speaking and preferentially looks up to the right and has his neck turned to the right. Patient was just discharged from the hospital recently after being admitted for several days for vomiting. Patient denies any illicit drug use. He denies any psychiatric history or history of Haldol usage.] Physical Examination: [HEENT-PERRLA, EOMI. Cranial nerves II through XII grossly intact. TMs clear. Mucous membranes moist. No adenopathy. Patient preferentially looks up into the right. Patient's neck turned to the right. Patient appears to be having extrapyramidal reaction Cardiovascular-regular rate and rhythm without murmur or ectopy Lungs-clear to auscultation, chest wall stable without crepitus or subcu emphysema Abdomen-normoactive bowel sounds, soft, nontender, no rebound or rigidity, no peritoneal signs. Extremities-intact ?4, normal range of motion, normal pulses, atraumatic] Test Results: [CBC with differential obtained showed a slightly elevated white count of 12.3, hemoglobin 13, hematocrit 38, placed 201. Chemistries unremarkable. Toxicology screen was positive for marijuana.] Emergency Department Course and Treatment: [1 mg of Cogentin and did not have any improvement in symptoms. Patient then was given 50 mg of Benadryl and his symptoms completely resolved.] Treatment Plan: [Patient advised to discontinue the Zofran and I will write him a prescription for Phenergan. Patient advised that if symptoms return to attempt to use Benadryl.] Disposition: [Discharged home in stable condition] Impression: [Medication adverse reaction to Zofran-extrapyramidal symptoms ] This note was generated with [employer] dictation software. It may contain incorrect words, spelling, and punctuation that were not noted in review of the chart prior to signing ED Disposition - Plan for ED Patient: Referrals: Care Physician,No Primary [Primary Care Provider] -
[2018-09-11] MEDS: 0.9% Normal Saline 1,000 ML 150 ML IV (16:27)
[2018-09-11 16:30] LABS: Absolute Lymphocyte Count 1.53 X10^3/ul (0.83-4.51); Absolute Neutrophil Count 9.5 X10^3/uL (2.0-7.7); Basophil# 0.02 X10^3/uL; Basophil% 0.2 % (0-1); Eosinophil# 0.23 X10^3/uL; Eosinophils% 1.9 % (0-5); Hematocrit 38.1 % (40-54); Hemoglobin 13.3 g/dl (13.0-16.5); Lymphocyte # 1.53 X10^3/ul (4.0); Lymphocyte % 12.4 % (19-41); Mean Corp Hgb Conc 34.9 g/gl (32-36); Mean Corpuscular Hgb 29.8 pg (27.0-32.0); Mean Corpuscular Volume 85.4 fL (80-94); Mean Platelet Vol. 9.3 fl (6.2-12.0); Monocyte% 8.1 % (0-10); Neutrophil # 9.48 X10^3/uL (2.7-7.7); Neutrophil % 77.1 % (47-70); POSITIVE COUNT NO; POSITIVE DIFFERENTIAL NO; POSITIVE MORPHOLOGY NO; Platelet Count 201 K/mm3 (150-450); RBC Distribution Width CV 13.3 % (11.6-14.6); RBC Distribution Width SD 41.6 fl (35.1-43.9); Red Blood Count 4.46 M/mm3 (4.6-6.2); White Blood Count 12.3 K/mm3 (4.4-11.0)
[2018-09-11 16:41] LABS: Anion Gap 8 (5-15); BUN 7 mg/dL (7-18); BUN/Creat Ratio 10.4 RATIO (10-20); Calcium,Total 8.3 mg/dL (8.5-10.1); Chloride 109 mmol/L (98-107); Creatinine, Serum 0.68 mg/dL (0.70-1.30); EST Glomerular Filtration Rate 154 mL/min (>60); Est Glom Filt Rate - Afr Amer 186 mL/min (>60); Estimated Creatinine Clearance 168.95 ml/min; Glucose 147 mg/dL (74-106); Potassium 3.4 mmol/L (3.5-5.1); Sodium Level 140 mmol/L (136-145)
[2018-09-11 17:08] VITALS: BP 129/77; PULSE 87; RESP 18; O2SAT 96
[2018-09-11] MEDS: DiphenhydrAMINE 50 MG/ML Syringe IV (17:47)
[2018-09-11 18:25] VITALS: BP 114/92; PULSE 93; RESP 17; O2SAT 99
[2018-09-11 18:27] LABS: Amphetamine Urine VISTA NEGATIVE (<1000 ng/mL); Barbiturate Urine VISTA NEGATIVE (< 200 ng/mL); Benzodiazepine Urine VISTA NEGATIVE (< 200 ng/mL); Cocaine Urine VISTA NEGATIVE (< 300 ng/mL); Ecstacy Urine VISTA NEGATIVE (< 500 ng/mL); Methadone Urine VISTA NEGATIVE (< 300 ng/mL); PCP Urine VISTA NEGATIVE (< 25 ng/mL); THC Urine VISTA POSITIVE (< 50 ng/mL); Vista UDS pH Range 6
[2018-09-11 19:12] VITALS: BP 131/84; PULSE 84; RESP 17; O2SAT 97
--- NOTE | 2018-09-11 19:14 | ED.DEP ---
ED Disposition - Plan for ED Patient: Instructions: ED Drug React Dystonic Adverse Prescriptions: proMETHazine tablet [Phenergan] 25 mg PO Q6H PRN PRN #10 tab PRN Reason: Nausea Referrals: Care Physician,No Primary [Primary Care Provider] - Issac Carrillo MD [NON-STAFF] - 3-5 Days
== END 2018-09-11 19:20 | disposition home or self-care (01) ==
PROVIDERS: Emergency Provider Emergency Medicine
DX: T45.0X5A Adverse effect of antiallergic and antiemetic drugs, initial encounter (principal); G25.79 Other drug induced movement disorders; R47.89 Other speech disturbances
CPT/HCPCS: 80048; 80307; 85025; 96361; 96374; J7030; A4216

== ENCOUNTER 2018-09-13 11:29 | Emergency (ER) | payer MEDICAID, SELFPAY ==
[2018-09-13 11:30] VITALS: BP 127/93; PULSE 67; RESP 15; TEMP 37.1; O2SAT 99; BMI 23.6
--- NOTE | 2018-09-13 12:04 | ED.VIS.GEN ---
History of Present Illness Chief Complaint: Nausea/Vomiting Context: Gradual Onset Current Severity: Mild Maximum Severity: Moderate Narrative: 22-year-old male who was discharged yesterday from the hospital after an admission for a gastrointestinal illness. He states that he was doing well on discharge but is nauseated again and has had vomiting. He denies any change in the character or severity of his symptoms. No change in the location of his abdominal pain. It is currently moderate in severity. It is worse when he eats. He denies fever or back pain. Denies unusual food intake. He has been taking his Phenergan with mild relief. Past Medical History - Allergies and Home Meds Allergies/Adverse Reactions: Allergies Penicillins Allergy (Verified 09/11/18 15:59) Hives Primary Care Physician: Care Physician,No Primary [Primary Care Provider] - Prior records reviewed: Yes Surgical History: no surgical history Smoking Status: Current every day smoker - Family History Maternal Family History: Reports: No pertinent history Paternal Family History: Reports: No pertinent history Review of Systems All systems negative except as indicated General: Denies: Chills, Fever, Sweats Eyes: Denies: Visual changes - bilaterally, Diplopia ENT: Denies: Rhinorrhea, Sore throat Cardiovascular: Denies: Chest pain, Palpitations Respiratory: Denies: Dyspnea, Cough, Dyspnea on exertion Gastrointestinal: Reports: Abdominal pain, Nausea, Vomiting. Denies: Diarrhea, Melena, Hematochezia Genitourinary: Denies: Dysuria, Hematuria, Frequency Musculoskeletal: Denies: Back pain, Extremity Pain Skin: Denies: Rash, Wounds Neurological: Denies: Headache, Weakness, Numbness Physical Exam Vital Signs/Narrative: Vital Signs Temp Pulse Resp BP Pulse Ox 09/13/18 11:30 98.8 F 67 15 127/93 H 99 General: Well nourished, Well developed, No Acute Distress Head: Normocephalic, Atraumatic Eyes: [place]err[place], EOMI ENT: No rhinorrhea, Dry mucous membranes Neck: Supple, Nontender Cardiovascular: Regular rate, Regular rhythm, No murmurs Respiratory: No distress, CTA bilaterally, Chest nontender Abdomen: Soft, Nontender, Nondistended, Normal bowel sounds Back: Nontender, Normal Inspection Extremities: Nontender, No edema Skin: Normal color, No rash Neurological: Alert, Oriented x3, Cranial nerves II-XII grossly intact, Normal Strength, Normal Sensation Psychological: Normal affect, Normal Mood Diagnostic/Tx/Re-eval - Medical Decision Making He still has a slight leukocytosis but other labs are fairly unremarkable. I repeated his CT abdomen/pelvis with IV contrast and there is free fluid in the pelvis which is somewhat unusual in a male patient. It appears consistent with inflammation but there is no obvious source of infection. His appendix appears normal. He was given IV fluids and antiemetics and he is drinking fluids and eating without difficulty. His abdomen is completely soft and nontender. I had an extensive discussion with him and also discussed the case with Dr. Gutierrez who saw him on his previous admission. His tox screen on the previous admission was positive for marijuana and he admits to fairly habitual marijuana use. Perhaps there is a component of cannabis hyperemesis with this but I cannot say with certainty. I discussed this at length with him and stressed the importance of completely discontinuing marijuana use. We discussed bringing him back into the hospital for symptom control and GI consultation but he feels strongly about going home and assures me he will follow-up closely with GI as an outpatient. He will return to the emergency department if worse. I will prescribe him Bentyl and Reglan. ED Disposition - Plan for ED Patient: Disposition: Home or Assisted Living Diagnosis: Nausea & vomiting, Marijuana abuse Instructions: ED Nausea Vomiting Prescriptions: Dicyclomine HCl [Bentyl] 20 mg PO TIDAC #20 capsule Metoclopramide [Reglan] 10 mg PO 4X/DAY PRN #20 tablet PRN Reason: Headache Referrals: James Lee MD [STAFF PHYSICIAN] -
[2018-09-13] MEDS: Ondansetron 4 MG/2 ML Vial IV (12:06)
[2018-09-13] MEDS: 0.9% Normal Saline 1,000 ML 1000 ML IV (12:06)
[2018-09-13 12:20] LABS: Absolute Lymphocyte Count 1.47 X10^3/ul (0.83-4.51); Absolute Neutrophil Count 10.8 X10^3/uL (2.0-7.7); Basophil# 0.01 X10^3/uL; Basophil% 0.1 % (0-1); Eosinophil# 0.06 X10^3/uL; Eosinophils% 0.4 % (0-5); Hematocrit 41.3 % (40-54); Hemoglobin 14.5 g/dl (13.0-16.5); Lymphocyte # 1.47 X10^3/ul (4.0); Mean Corp Hgb Conc 35.1 g/gl (32-36); Mean Corpuscular Hgb 29.1 pg (27.0-32.0); Mean Corpuscular Volume 82.9 fL (80-94); Mean Platelet Vol. 9.4 fl (6.2-12.0); Monocyte# 0.99 X10^3/uL; Monocyte% 7.4 % (0-10); Neutrophil # 10.81 X10^3/uL (2.7-7.7); Neutrophil % 80.7 % (47-70); Platelet Count 259 K/mm3 (150-450); RBC Distribution Width CV 13.1 % (11.6-14.6); RBC Distribution Width SD 39.2 fl (35.1-43.9); Red Blood Count 4.98 M/mm3 (4.6-6.2); White Blood Count 13.4 K/mm3 (4.4-11.0)
[2018-09-13 12:22] LABS: POSITIVE COUNT NO; POSITIVE DIFFERENTIAL NO; POSITIVE MORPHOLOGY NO
[2018-09-13 12:32] LABS: ALB/GLOB Ratio 1.1 RATIO (0.9-2.4); AST(SGOT) 19 U/L (15-37); Alanine Aminotransfer ALT/SGPT 31 U/L (16-61); Albumin, Serum 3.8 g/dL (3.2-5.0); Alkaline Phosphatase 62 U/L (45-117); Anion Gap 13 (5-15); BUN 13 mg/dL (7-18); BUN/Creat Ratio 19.8 RATIO (10-20); Calcium,Total 8.7 mg/dL (8.5-10.1); Chloride 105 mmol/L (98-107); Creatinine, Serum 0.66 mg/dL (0.70-1.30); EST Glomerular Filtration Rate 158 mL/min (>60); Est Glom Filt Rate - Afr Amer 192 mL/min (>60); Estimated Creatinine Clearance 174.07 ml/min; Globulin 3.5 g/dL (2.2-4.2); Glucose 86 mg/dL (74-106); Lipase 73 U/L (73-393); Potassium 3.2 mmol/L (3.5-5.1); Protein, Total 7.3 g/dL (6.4-8.2); Sodium Level 142 mmol/L (136-145)
--- NOTE | 2018-09-13 12:38 | CT_ITS ---
STUDY: CT ABDOMEN AND PELVIS WITH CONTRAST REASON FOR EXAM: Male, 22 years old. Vomiting, abdominal pain, gastroenteritis. RADIATION DOSAGE (If Supplied By Facility): CTDIvol = ( 9.66 ) mGy, DLP = ( 491.64 ) mGycm TECHNIQUE: Transaxial images were obtained from the dome of the diaphragm to the symphysis pubis without oral contrast. 100cc IV Isovue 250 was administered. Sagittal and coronal images were reconstructed. Individualized dose optimization techniques were used for this CT. COMPARISON: 09/09/2018 FINDINGS: The visualized lung bases are unremarkable. The visualized portions of the heart are within normal limits. Normal liver. Normal gallbladder and extrahepatic biliary system. Normal spleen. Normal pancreas. Normal bilateral adrenal glands. Normal right kidney. Normal left kidney. There is a small hiatal hernia. Normal small intestine. Normal colon. The appendix is visualized and appears normal. Normal abdominal aorta. Normal inferior vena cava. Normal retroperitoneum. Normal urinary bladder. Small amount of free fluid in the pelvis suggestive of peritonitis but no obvious etiology. Normal abdominal wall. Normal osseous structures. CT/Abdomen/Pelvis W IV Cont ONLY IMPRESSION: Interval development of a small amount of free fluid in the pelvis which is abnormal male patient and worrisome for inflammation but without obvious etiology. The appendix appears normal. Electronically Signed: Nayan Urbano MD at 13:49 EDT Tel , Service support ,
[2018-09-13 13:38] VITALS: BP 133/73; PULSE 66; RESP 18; O2SAT 99
[2018-09-13 15:41] VITALS: PULSE 78; RESP 17; O2SAT 98
== END 2018-09-13 15:42 | disposition home or self-care (01) ==
PROVIDERS: Emergency Provider Emergency Medicine
DX: R11.2 Nausea with vomiting, unspecified (principal); F12.10 Cannabis abuse, uncomplicated; F17.200 Nicotine dependence, unspecified, uncomplicated
CPT/HCPCS: 74177; 80053; 83690; 85025; 96361; 96374; 99283; J7030; Q9967; A4216; J2405

== ENCOUNTER 2018-12-09 23:31 | Emergency (ER) | payer MEDICAID, SELFPAY ==
[2018-12-09 23:32] VITALS: BP 118/73; PULSE 86; RESP 18; TEMP 36.4; BMI 22.6
--- NOTE | 2018-12-10 00:14 | RAD_ITS ---
HISTORY: FELLC/O RT 1ST -5TH MID-PROXIMAL METACARPAL, CARPALS AND DIST RADIUS AND ULNA PAINMORE PAIN AREA OF 5TH METACARPAL AND DISTAL ULNA COMPARISON: None FINDINGS: # of images incl. paperwork: 3 XR Wrist Min 3 Views : No fracture or subluxation. No osseous or soft tissue abnormality. The carpal bones have a normal appearance. The distal radius and ulna are unremarkable. No evidence of radiopaque foreign body. RAD/Wrist min 3 Views IMPRESSION: Normal right wrist. at 0054 Reported and signed by: Oskar Melvin MD Electronically Signed: Oskar Melvin MD at 0:53 EDT Tel , Service support ,
--- NOTE | 2018-12-10 00:14 | RAD_ITS ---
HISTORY: HISTORY: FELLC/O RT 1ST -5TH MID-PROXIMAL METACARPAL, CARPALS AND DIST RADIUS AND ULNA PAINMORE PAIN AREA OF 5TH METACARPAL AND DISTAL ULNA XR Hand Min 3 Views COMPARISON: None FINDINGS: # of images incl. paperwork: 3 3 views of the right hand. Findings: No fracture or subluxation. No osseous or soft tissue abnormality. No significant joint space narrowing. No radiopaque foreign body. RAD/Hand Min 3 Views IMPRESSION: Normal right hand. at 0054 Reported and signed by: Oskar Melvin MD Electronically Signed: Oskar Melvin MD at 0:52 EDT Tel , Service support ,
--- NOTE | 2018-12-10 00:14 | ED.VIS.GEN ---
History of Present Illness Chief Complaint: Upper Extremity Injury Narrative: Patient is a 23-year-old male who presents with right wrist and hand pain. About 6 hours ago he was walking up the steps when he slipped and spun while falling. He hit his right hand and wrist against the rail. He did not fall outstretched onto it. He denies any other injuries. No head injury. No chest pain shortness of breath back pain abdominal pain injury to the other extremities. Past Medical History - Allergies and Home Meds Allergies/Adverse Reactions: Allergies Penicillins Allergy (Verified 09/11/18 15:59) Hives Primary Care Physician: Care Physician,No Primary [Primary Care Provider] - Past Medical History: None Surgical History: no surgical history Smoking Status: Current every day smoker - Family History Maternal Family History: Reports: No pertinent history Paternal Family History: Reports: No pertinent history Review of Systems All systems negative except as indicated Physical Exam Vital Signs/Narrative: Vital Signs Temp Pulse Resp BP 12/09/18 23:32 97.6 F L 86 18 118/73 General: Well nourished, Well developed Eyes: EOMI ENT: Moist mucous membranes Neck: Supple Cardiovascular: Regular rate Respiratory: No distress Extremities: - - Patient has tenderness diffusely in the right hand and right wrist he does not have focal bony tenderness no deformity intact sensation to light touch brisk capillary refill easily palpable radial pulse normal motor function Skin: Normal color Neurological: Alert Psychological: Normal affect Diagnostic/Tx/Re-eval Impressions Hand X-Ray 12/10/18 00:14 IMPRESSION: Normal right hand. at 0054 Reported and signed by: Oskar Melvin MD Electronically Signed: Oskar Melvin MD at 0:52 EDT Tel , Service support , Wrist X-Ray 12/10/18 00:14 IMPRESSION: Normal right wrist. at 0054 Reported and signed by: Oskar Melvin MD Electronically Signed: Oskar Melvin MD at 0:53 EDT Tel , Service support , 12/10/18 00:14 Hand Min 3 Views [RAD] Stat Wrist min 3 Views [RAD] Stat - Medical Decision Making Right wrist and hand x-rays were negative. Patient was given a Velcro wrist splint. He was advised on supportive care including rest ice and elevation. He was advised on anti-inflammatory use and discharged home. ED Disposition - Plan for ED Patient: Diagnosis: Wrist contusion, Hand contusion Instructions: CONTUSION, Hand, CONTUSION, Upper Extremity Referrals: Care Physician,No Primary [Primary Care Provider] -
[2018-12-10 01:55] VITALS: PULSE 84; RESP 18
== END 2018-12-10 01:56 | disposition home or self-care (01) ==
LOC: ED 12-10 00:31
PROVIDERS: Emergency Provider Emergency Medicine
DX: S60.211A Contusion of right wrist, initial encounter (principal); S60.221A Contusion of right hand, initial encounter; F17.200 Nicotine dependence, unspecified, uncomplicated; W10.9XXA Fall (on) (from) unspecified stairs and steps, initial encounter; Y93.01 Activity, walking, marching and hiking; Y92.009 Unspecified place in unspecified non-institutional (private) residence as the place of occurrence of the external cause; Y99.8 Other external cause status
CPT/HCPCS: 73110; 73130; 99283

== ENCOUNTER 2019-07-06 18:48 | Emergency (ER) | payer MEDICAID, SELFPAY ==
[2019-07-06 18:49] VITALS: BP 116/66; PULSE 60; RESP 15; TEMP 36.9; O2SAT 96; BMI 20.9
[2019-07-06] MEDS: proMETHazine 25 MG/ML Syringe 12.5 MG IV (19:18)
[2019-07-06] MEDS: 0.9% Normal Saline 1,000 ML 999 ML IV (19:19)
--- NOTE | 2019-07-06 20:39 | ED.DCSUM_ITS ---
- ER Visit Summary Date of Service: 07/06/19 Chief Complaint: Nausea and vomiting History of Present Illness: The patient is a 23 M with nausea and vomiting today. He currently is having dry heaves and abdominal cramps. Denies fever, cough, or shortness of breath. He has a history of this. Physical Examination: Afebrile and vital signs unremarkable. Heart regular. Lungs clear. Abdomen soft, nontender, nondistended, no guarding or rebound. Skin appears normal. Test Results: None performed Emergency Department Course and Treatment: Patient was treated with IV fluids and Phenergan. On reevaluation, he was able to pass a PO challenge. He has a history of this, gastroenteritis, gastritis. He has no other red flag features. Nothing to suggest imaging or laboratory studies. Will treat symptomatically with Phenergan. Outpatient follow-up. Treatment Plan: As above Disposition: Discharge Impression: Nausea and vomiting This note was generated with [employer] dictation software. It may contain incorrect words, spelling, and punctuation that were not noted in review of the chart prior to signing ED Disposition - Plan for ED Patient: Referrals: Care Physician,No Primary [Primary Care Provider] -
--- NOTE | 2019-07-06 20:40 | ED.DEP ---
ED Disposition - Plan for ED Patient: Instructions: VOMITING (5y-Adult) Prescriptions: proMETHazine tablet [Phenergan] 25 mg PO Q6H PRN PRN #10 tab PRN Reason: Nausea Prescription Printed Referrals: Sherry Chaves [NON-STAFF] -
[2019-07-06 20:53] VITALS: BP 109/57; PULSE 72; RESP 18; O2SAT 99
== END 2019-07-06 20:59 | disposition home or self-care (01) ==
LOC: ED 19:17
PROVIDERS: Emergency Provider Emergency Medicine
DX: R11.2 Nausea with vomiting, unspecified (principal); R10.9 Unspecified abdominal pain; J45.909 Unspecified asthma, uncomplicated; Z87.19 Personal history of other diseases of the digestive system; Z72.0 Tobacco use
CPT/HCPCS: 96361; 96374; 99283; J7030; A4216

== ENCOUNTER 2023-06-04 09:55 | Emergency (ER) | payer MEDICAID, SELFPAY ==
[2023-06-04 09:56] VITALS: BP 116/66; PULSE 98; RESP 14; TEMP 36.7; O2SAT 100
--- NOTE | 2023-06-04 10:22 | ED.VIS.BACK ---
HPI History of Present Illness Chief Complaint: Back Informant: patient Narrative Narrative: Patient is a 27-year-old male with history of IV drug use (last used about a week and a half ago however started Suboxone 1 week ago) presenting with worsening low back pain. Patient states 1 week ago he felt a twinge in his lower back. Since then he has had pain in the right lower back and over the past few days it is moved now to his hip area. He states he feels like a tight muscle. Denies any numbness or tingling. Denies any pain rating down his leg. Denies any night sweats, saddle anesthesia (perineal numbness) or incontinence. Notes he had a subjective fever 3-4 nights ago but that has resolved. Does note that he has area of red swelling of his left forearm that popped up today. He states he had in the past and is taking clindamycin which is resolved it. Denies any other complaints or concerns at this time. Has been taking ibuprofen with some relief of his symptoms. PFSH PFS Medical History no medical history Home Medications buprenorphine 8 mg-naloxone 2 mg sublingual film 1 film sublingual Q24H 06/04/23 [History Last Taken Unknown] cyclobenzaprine 10 mg tablet 10 mg PO TID PRN Muscle Spasm #20 TABLETS 06/04/23 [Rx Last Taken Unknown] doxycycline hyclate 100 mg tablet 100 mg PO BID #14 tabs 06/04/23 [Rx Last Taken Unknown] ibuprofen 600 mg tablet 600 mg PO Q6H PRN pain #20 tabs 06/04/23 [Rx Last Taken Unknown] Allergy/AdvReac Type Severity Reaction Status Date / Time Penicillins Allergy Hives Verified 06/04/23 09:57 Surgical History no surgical history Social History Smoking Status: Current every day smoker tobacco type: cigarettes ROS ROS ED Constitutional Constitutional ED: Denies chills or sweats Cardiovascular Cardiovascular: Denies chest pain Respiratory/Chest Respiratory/Chest: Denies dyspnea Gastrointestinal Gastrointestinal: Denies abdominal pain, diarrhea, nausea or vomiting Genitourinary Genitourinary ED: Reports other Details: Denies urinary incontinence ; Denies dysuria Musculoskeletal Musculoskeletal: Reports back pain; Denies arthralgias, myalgias or neck pain Integumentary Reports abscess Neurologic Neurologic: Denies headache(s), paresthesias or weakness Psychiatric Psychiatric: Denies anxiety Hematologic/Lymphatic Hematologic/Lymphatic: Denies easy bleeding or easy bruising EXAM Physical Exam Const Vital Signs: 06/04/23 09:56 06/04/23 10:53 Temperature 98.0 F 97.2 F L Temperature Source Temporal Pulse Rate 98 94 Respiratory Rate 14 14 Blood Pressure 116/66 118/77 Blood Pressure Mean 82 90 Pulse Ox 100 99 Oxygen Delivery Method Room Air Positive well nourished and well developed General Appearance ED: well developed and NAD HEENT Reports moist mucous membranes Neck supple Resp normal respiratory effort and clear to auscultation bilaterally Cardio regular rate, regular rhythm and no murmurs Back/Spine Back/Spine Narrative: No midline tenderness. No CVA tenderness. Mild tenderness palpation of the right lumbar paraspinal region around approximately L4-L5. Worse with range of motion of the leg. No weakness of the leg and able to flex and extend the feet without any difficulty. Does have some difficulty with hip flexion but states is because of pain in his back. Cervical Spine: Negative for cervical spine tenderness Thoracic Spine / Upper Back: Negative for paraspinal muscle tenderness Lumbar Spine / Lower Back: straight leg raise negative bilaterally Extremity normal to inspection General Extremety ED: Negative for edema or tenderness General Extremity: Negative for edema Neuro oriented x3 Psych mental status grossly normal Skin Skin Narrative: Approximately-1 cm area of erythema and mild swelling of the left forearm consistent with an early abscess MDM MDM MDM Narrative Medical decision making narrative: Patient is evaluated for worsening low back pain. Pain appears to be more paraspinal. He also has what appears to be a developing abscess on his left forearm. Does have risk factors for cauda equina syndrome including IV drug use however he does not have a fever here, midline tenderness or any neurologic symptoms/bowel or bladder incontinence or saddle anesthesia. Is counseled on the symptoms concerning for cauda equina and instructed to return the emergency room if he develops these. Will be treated for muscle skeletal pain in his back with Lidoderm patch and muscle relaxer. Will continue take NSAIDs. Is offered I&D for likely developing abscess of his left forearm but he states he just like to do antibiotics warm compresses. Encouraged to return if this is not successful or the symptoms worsen. Will be started on doxycycline given first dose in the emergency room. Patient verbalized agreement understand this plan. Discharged home in stable condition. Discharge Plan Triage Chief Complaint: Back ED Provider: Preeti Mejia Dx/Rx/DC Orders Clinical Impression: Lumbar strain, Abscess of forearm, left Instructions: ED Abscess Antibiotic Treatment Only, ED Back Sprain/Strain Prescriptions: New ibuprofen 600 mg tablet 600 mg PO Q6H PRN (Reason: pain) Qty: 20 0RF doxycycline hyclate 100 mg tablet 100 mg PO BID Qty: 14 0RF cyclobenzaprine 10 mg tablet 10 mg PO TID PRN (Reason: Muscle Spasm) Qty: 20 0RF No Action buprenorphine-naloxone 8-2 mg film 1 film sublingual Q24H Patient Comments: TAKE 1 SUBLINGUAL FILM ONCE A DAY Primary Care Provider: Sherry Chaves Referrals: Sherry Chaves [Primary Care Provider] - 3-5 Days if not improving Care Physician,No Primary [Non-Staff] - Activity Restrictions/Additional Instructions: You may alternate ibuprofen and Tylenol for pain. He would prescribed a muscle relaxer. You may also use [id number] Lidoderm patches for pain. If the wound on your arm does not drain or gets worse he might need to return to have it lanced (drained) in the emergency room. In the meantime continue to warm compresses and take the antibiotics prescribed. If you develop fever, night sweats or more midline tenderness or issues with your bowels/bladder especially incontinence or numbness in your privates/perineum please return to the emergency room immediately. Disposition Disposition: Home, Self Care Discharge Date/Time: 06/04/23 10:55
[2023-06-04] MEDS: cycloBENZAPRine HCl 10 MG Tablet PO (10:23)
[2023-06-04] MEDS: Doxycycline 100 MG CAPSULE PO (10:23)
[2023-06-04] MEDS: Lidocaine 5% Patch 1 PATCH TOPICAL (10:24)
[2023-06-04 10:53] VITALS: BP 118/77; PULSE 94; RESP 14; TEMP 36.2; O2SAT 99
--- OUTSIDE RECORDS SUMMARY | 2023-06-04 10:58 | XMS RPT_ITS | CCD ---
Author Name Unknown Address [address] [place] [id number] Organization [facility] Care Team Providers Care Fashion Designer Name Role Phone Work Care Unavailable Unavailable Work Care Unavailable Unavailable Problems Problem Classification Problem Date Documented Da te Episodic/Chronic Unclassified (1 source) Onset: 10-16-2016 Results Test Name Value Interpretation Reference Range Facil ity Encounters Encounter Date Encounter Type Care Provider Facility Start: 11-17-2016 Ambulatory Work Care Facility:[facility] Start: 10-16-2016 Ambulatory Work Care Facility:[facility] Progress note 04-04-2021 Note Date & Type Note Facility 04-04-2021 Note HNO ID: [id number] Author: Sallie Chacko PA-C Service: ? Author Type: Physician Mental Health Consultant Type: Progress Notes Filed: 04/04/2021 12:51 PM Note Text: Subjective HPI HPI Oskar Painter is a 25 year old male who presents today for CC of fever/chills, fatigue, headache, body aches, N/V, and diarrhea. Notes that he first started feeling off on Sunday, and then symptoms hit a lot harder on Sunday. Tmax just under 102. +Rhinorrhea and congestion, loss of taste this AM. PMH significant for asthma, and previously smoked, but not currently (>1 year since he quit). Vomiting and having diarrhea rather frequently since the weekend. No direct exposure to covid, but states that someone in his son's daycare tested positive for covid. Symptoms include: Fever (?100.4F): Yes or Chills: Yes Cough: Yes Shortness of breath: Yes or Difficulty breathing: No Fatigue: Yes Muscle aches: Yes Headache: Yes New loss of smell or taste: Yes Sore throat: No Nasal congestion: Yes or Rhinorrhea: Yes Nausea: Yes or Vomiting: Yes Diarrhea: Yes OTC meds/remedies that patient has tried: pseudoephedrine, sinex, vapor inhaler nasal stick High risk category assessment No high risk factors Exposures: Sick contacts? Yes Family or close contacts with confirmed/probable COVID-19 in last 14 days? Yes BP 102/68 Pulse 76 Temp 36.6 ?C (97.9 ?F) Resp 16 Wt 64 kg (141 lb) SpO2 99% Social History Tobacco Use - Smoking status: Current Every Day Smoker - Smokeless tobacco: Former User Types: Chew - Tobacco comment: can every 2-3 days Substance Use Topics - Alcohol use: No - Drug use: No PAST MEDICAL HISTORY Diagnosis Date - Unspecified asthma(493.90) I have confirmed and edited as necessary, the [facility] Review of Systems All other systems reviewed and are negative. Objective BP 102/68 Pulse 76 Temp 36.6 ?C (97.9 ?F) Resp 16 Wt 64 kg (141 lb) SpO2 99% Physical Exam Vitals and nursing note reviewed. Constitutional: Appearance: Normal appearance. He is not toxic-appearing. Comments: Appears to be generally fatigued HENT: Head: Normocephalic and atraumatic. Right Ear: Tympanic membrane, ear canal and external ear normal. No middle ear effusion. Tympanic membrane is not injected, perforated, erythematous, retracted or bulging. Left Ear: Tympanic membrane, ear canal and external ear normal. No middle ear effusion. Tympanic membrane is not injected, perforated, erythematous, retracted or bulging. Nose: No mucosal edema or rhinorrhea. Right Sinus: No maxillary sinus tenderness or frontal sinus tenderness. Left Sinus: No maxillary sinus tenderness or frontal sinus tenderness. Mouth/Throat: Pharynx: Uvula midline. No oropharyngeal exudate or posterior oropharyngeal erythema. Tonsils: No tonsillar abscesses. Cardiovascular: Rate and Rhythm: Normal rate and regular rhythm. Heart sounds: Normal heart sounds, S1 normal and S2 normal. No murmur heard. Pulmonary: Effort: Pulmonary effort is normal. Breath sounds: Normal breath sounds. No decreased breath sounds, wheezing, rhonchi or rales. Abdominal: General: Bowel sounds are normal. Palpations: Abdomen is soft. Abdomen is not rigid. Tenderness: There is no abdominal tenderness. There is no guarding. Musculoskeletal: Cervical back: Normal range of motion. Lymphadenopathy: Head: Right side of head: No submental, submandibular, tonsillar, preauricular, posterior auricular or occipital adenopathy. Left side of head: No submental, submandibular, tonsillar, preauricular, posterior auricular or occipital adenopathy. Cervical: No cervical adenopathy. Right cervical: No superficial or posterior cervical adenopathy. Left cervical: No superficial or posterior cervical adenopathy. Skin: General: Skin is warm and dry. Neurological: Mental Status: He is alert and oriented to person, place, and time. Psychiatric: Mood and Affect: Affect normal. ASSESSMENT/PLAN: 1. Viral syndrome - ICD9: 079.99, ICD10: B34.9 (primary diagnosis) - Discussed viral etiology and rationale for treatment. Covid and flu testing ordered; Results will be released to [facility] in 24-48 hours. Discussed quarantine, social distancing, hand washing/proper hygiene. Rest, fluids, OTC medications discussed. - COVID WITH FLUA+B, ROUTINE - ALBUTEROL SULFATE HFA 90 MCG/ACTUATION AEROSOL INHALER 2. Reactive airway disease with acute exacerbation, unspecified asthma severity, unspecified whether persistent - ICD9: 493.92, ICD10: J45.901 Rx for albuterol inhaler sent to pharmacy. - ALBUTEROL SULFATE HFA 90 MCG/ACTUATION AEROSOL INHALER Pt advised to see PCP if symptoms persist or progress. Reviewed red flags (ie chest pain, shortness of breath) with patient and when to seek care sooner. The patient indicates understanding of these issues and agrees with the plan. Sallie Chacko PA-C [facility] Progress note 12-03-2020 Note Date & Type Note Facility 12-03-2020 Note HNO ID: [id number] Author: Gregorio Robbins APRN.ENFORCEMENT MANAGER Service: ? Author Type: Nurse Practitioner Type: Progress Notes Filed: 12/03/2020 12:09 PM Note Text: Subjective HPI Nontoxic-appearing male presents urgent care chief complaint COVID-19 concerns. Duration of symptoms 4 days. Associated symptoms body aches, chills, cough, headache loss of taste and smell. Patient states last week he was in contact with his aunt who tested positive for COVID-19. Patient states he was in close contact with her. Denies any OTC medication use today. Denies any significant discomfort. Denies any fevers, nausea, vomiting, abdominal pain, pleuritic pain, shortness of breath chest pain or change in bowel or bladder habits. Past medical history prescription medication use allergies reviewed. .Patient presents with: Covid19 Concern: loss of taste/smell, fatigue, GTZ, bodyaches x4 days PAST MEDICAL HISTORY Diagnosis Date - Unspecified asthma(493.90) PAST SURGICAL HISTORY Procedure Laterality Date - NONE ALLERGIES Amoxocillin [Other] and Penicillins MEDICATIONS albuterol HFA (PROVENTIL HFA, VENTOLIN HFA) 90 mcg/actuation inhaler Inhale as instructed every 6 hours as needed. FOR WHEEZING AND SHORTNESS OF BREATH. promethazine (PHENERGAN) 25 mg tablet Take 1 tablet by mouth every 4 hours as needed for Nausea/Vomiting for up to 18 doses. No family history on file. Social History Tobacco Use - Smoking status: Current Every Day Smoker - Smokeless tobacco: Former User Types: Chew - Tobacco comment: can every 2-3 days Substance Use Topics - Alcohol use: No - Drug use: No BP 100/76 Pulse 76 Temp 36.4 ?C (97.6 ?F) Resp 14 Wt 64.3 kg (141 lb 12.8 oz) SpO2 99% Review of Systems Constitutional: Positive for chills and malaise/fatigue. Negative for fever. HENT: Negative for congestion, ear discharge, ear pain, sinus pain and sore throat. Eyes: Negative for blurred vision. Respiratory: Positive for cough. Negative for sputum production, shortness of breath, wheezing and stridor. Cardiovascular: Negative for chest pain. Gastrointestinal: Negative for abdominal pain, diarrhea, nausea and vomiting. Musculoskeletal: Positive for myalgias. Skin: Negative for itching and rash. Neurological: Positive for headaches. Negative for dizziness. Objective Physical Exam Constitutional: General: He is not in acute distress. Appearance: He is not diaphoretic. HENT: Head: Normocephalic. Nose: Nose normal. Mouth/Throat: Mouth: Mucous membranes are moist. Pharynx: Oropharynx is clear. No oropharyngeal exudate or posterior oropharyngeal erythema. Eyes: Conjunctiva/sclera: Conjunctivae normal. Pupils: Pupils are equal, round, and reactive to light. Cardiovascular: Rate and Rhythm: Normal rate and regular rhythm. Heart sounds: Normal heart sounds. Pulmonary: Effort: Pulmonary effort is normal. No tachypnea, accessory muscle usage or respiratory distress. Breath sounds: Normal breath sounds. No stridor. Abdominal: Palpations: Abdomen is soft. Tenderness: There is no abdominal tenderness. Musculoskeletal: Cervical back: Normal range of motion and neck supple. No rigidity. Lymphadenopathy: Cervical: No cervical adenopathy. Skin: General: Skin is warm and dry. Neurological: Mental Status: He is alert and oriented to person, place, and time. ASSESSMENT/PLAN: 1. Viral illness - ICD9: 079.99, ICD10: B34.9 - 2019 CORONAVIRUS COVID-19 test ordered. Work note provided. Home quarantine recommended. Alternative diagnosis discussed. Patient was educated on supportive therapies. Patient will follow up with primary care provider as needed. Patient was instructed to immediately proceed to emergency room for any new, worsening, or symptoms lasting longer than anticipated. The patient's clinical presentation is otherwise unremarkable at this time. Based on exam and clinical finding, the patient is stable for discharge. Plan of care was discussed with patient. Patient verbalizes understanding and agrees to plan of care. This note was generated using [employer] software. It may contain errors in wording, punctuation, or spelling. Gregorio Robbins APRN.[facility] Progress note 11-17-2020 Note Date & Type Note Facility 11-17-2020 Note HNO ID: [id number] Author: Daniele Trinidad MD Service: ? Author Type: Physician Type: Progress Notes Filed: 11/17/2020 3:53 PM Note Text: Patient presents with: GI Upset: vomiting and fatigue x 3 days HPI: Feeling sick for 3 days. Vomited a lot yesterday, starting to feel better. His family has had vomiting/diarrhea. Positive symptoms: nausea, vomiting, diarrhea, fever, fatigue, mild Nasal Congestion, Body Aches, bits of red in emesis, black stool, light-headed last night Negative symptoms: Cough, Shortness of breath, hematochezia, abdominal pain OTC: Ibuprofen He believes he had COVID-19 symptoms but did not get tested this winter. PAST MEDICAL HISTORY Diagnosis Date - Unspecified asthma(493.90) MEDICATIONS: Current Outpatient Medications Medication Sig - albuterol HFA (PROVENTIL HFA, VENTOLIN HFA) 90 mcg/actuation inhaler Inhale as instructed every 6 hours as needed. FOR WHEEZING AND SHORTNESS OF BREATH. - promethazine (PHENERGAN) 25 mg tablet Take 1 tablet by mouth every 4 hours as needed for Nausea/Vomiting for up to 18 doses. (Patient not taking: Reported on 11/17/2020 ) No current facility-administered medications for this visit. ALLERGIES: ALLERGIES Allergen Reactions - Amoxocillin [Other] Rash - Penicillins Rash VITALS: BP 108/64 Pulse 80 Temp 36.8 ?C (98.2 ?F) Resp 16 Wt 62.1 kg (137 lb) SpO2 99% PHYSICAL EXAM: GEN: mildly ill appearing HEENT: PERRL, EOMI, conjunctiva clear Throat: moist mucous membranes, no erythema, no exudate Neck: supple, no thyromegaly, no lymphadenopathy HEART: regular rate and rhythm, no murmurs LUNGS: clear to auscultation, no wheezes or crackles, no increased WOB ABD: Soft, non-distended, non-tender, no masses ASSESSMENT/PLAN: 1. Vomiting and diarrhea - ICD9: 787.03, 787.91, ICD10: R11.10, R19.7 (primary diagnosis) 2. Hematemesis with nausea - ICD9: 578.0, 787.02, ICD10: K92.0 3. Melena - ICD9: 578.1, ICD10: K92.1 Acute gastroenteritis. Differential includes COVID-19. Hydration encouraged. Assess for acute anemia. - CBC - COMP METABOLIC PANEL - 2019 CORONAVIRUS Follow up with primary care if benign. Follow up in the ER with signs of dehydration, increasing abdominal pain, high fever, or blood in vomit or stool. Daniele Trinidad MD [facility] Summary Purpose Family History No Family History Records FoundNo Family History Records FoundNo Family History Records Found Advance Directives No Advanced Directives Records FoundNo Advanced Directives Records FoundNo Advanced Directives Records Found Additional Source Comments (unrecognized sect ion and content) No Status Records FoundNo Status Records FoundNo Status Records Found INFORMATION SOURCE (unrecogn ized section and content) DATE CREATED AUTHOR AUTHOR'S ORGANIZ ATION 11/11/2019 [facility] DATE CREATED AUTHOR AUTHOR'S ORGANIZ ATION 05/16/2021 [facility] FOR RECORDS PERTAINING TO PATIENTS WHO ARE OR HAVE BEEN ENROLLED IN A CHEMICAL DEPENDENCY/SUBSTANCEABUSE PROGRAM, SOME INFORMATION MAY BE OMITTED. This clinical summary was aggregated from multiple sources. Caution should be exercised in using it in the provision of clinical care. This summary normalizes information from multiple sources, and as a consequence, information in this document may materially change the coding, format and clinical context of patient data. In addition, data may be omitted in some cases. CLINICAL DECISIONS SHOULD BE BASED ON THE PRIMARY CLINICAL RECORDS. [facility] [employer]. provides no warranty or guarantee of the accuracy or completeness of information in this document.
== END 2023-06-04 10:55 | disposition home or self-care (01) ==
PROVIDERS: Emergency Provider Emergency Medicine; Visit Provider Emergency Medicine
DX: L02.414 Cutaneous abscess of left upper limb (principal); S39.012A Strain of muscle, fascia and tendon of lower back, initial encounter; F17.210 Nicotine dependence, cigarettes, uncomplicated; X58.XXXA Exposure to other specified factors, initial encounter
CPT/HCPCS: 99283

== ENCOUNTER 2025-01-13 14:40 | Inpatient (IN) | payer MEDICAID, SELFPAY ==
[2025-01-13 14:41] VITALS: BP 116/72; PULSE 106; RESP 18; TEMP 36.6; O2SAT 99; BMI 22.9
--- NOTE | 2025-01-13 15:23 | EX.ED.SAOD ---
HPI History of Present Illness Chief Complaint: Substance Abuse Detail of Chief Complaint: History of of IV fentanyl abuse. Informant: patient Onset/Context/Timing Onset: Month(s) Context: Gradual Onset Timing: Continuous Current Severity: Mild Maximum Severity: Mild Narrative Narrative: 29-year-old male history of IV drug abuse. Denies any other past medical history. Requesting inpatient detox. Denies recent illness. Prior inpatient detox at other facilities. Prior similar symptoms: Yes Recent Illness/Hospitalization: No PFSH PFSH Home Medications ?Medication ?Instructions ?Recorded ?Last Taken ?Type buprenorphine 8 mg-naloxone 2 mg 1 film sublingual Q24H 06/04/23 Unknown History sublingual film cyclobenzaprine 10 mg tablet 10 mg PO TID PRN Muscle Spasm #20 06/04/23 Unknown Rx TABLETS doxycycline hyclate 100 mg tablet 100 mg PO BID #14 tabs 06/04/23 Unknown Rx ibuprofen 600 mg tablet 600 mg PO Q6H PRN pain #20 tabs 06/04/23 Unknown Rx Allergy/AdvReac Type Severity Reaction Status Date / Time Penicillins Allergy Hives Verified 01/13/25 14:41 Social History Smoking Status: Current every day smoker tobacco type: cigarettes ROS ROS ED ROS Narrative Denies recent illness. Withdrawal symptoms. Constitutional Constitutional ED: Denies chills or fever(s) Eyes Eyes: Denies blurry vision ENT ENT ED: Denies ear pain Cardiovascular Cardiovascular: Denies chest pain Respiratory/Chest Respiratory/Chest: Denies cough Gastrointestinal Gastrointestinal: Denies abdominal pain Genitourinary Genitourinary ED: Denies dysuria Musculoskeletal Musculoskeletal: Denies arthralgias Integumentary Denies abscess Neurologic Neurologic: Denies headache(s) Psychiatric Psychiatric: Denies anxiety Endocrine Endocrinology: Denies cold intolerance Hematologic/Lymphatic Hematologic/Lymphatic: Denies easy bleeding, easy bruising or lymphadenopathy Allergic/Immunologic Allergic/Immunologic ED: Denies mouth swelling, tongue swelling or urticaria EXAM Physical Exam Narrative Exam Narrative: 29-year-old male no acute distress vital signs stable afebrile. H EENT exam pupils round react to light. Moist mutes membranes. Neck nontender no JVD. No lymphadenopathy. Lungs clear to auscultation bilaterally. Heart regular rhythm rate about 100 no murmur. Chest wall ribs nontender. Abdomen soft nontender. Back nontender. Moving all 4 extremities. Nontender no edema. No track hudson. Patient no signs of infection. No cellulitis or abscesses. Neurologic exam patient is awake alert. Answering questions following commands. Const Vital Signs: 01/13/25 14:41 Temperature 98 F Temperature Source Temporal Pulse Rate 106 H Respiratory Rate 18 Blood Pressure 116/72 Blood Pressure Mean 86 Pulse Ox 99 Oxygen Delivery Method Room Air Positive well nourished and well developed; Negative for cachectic, contractures or unkempt General Appearance ED: well developed and NAD; Negative for unkempt, cachectic, contractures or pallor Nutritional Appearance: Negative for cachectic HEENT Reports moist mucous membranes atraumatic Eyes PERRL and EOMs intact bilaterally Neck no lymphadenopathy, supple and no JVD Lymph Lymphatic: no lymphadenopathy noted Chest Wall inspection of chest normal and palpation of chest normal Resp normal respiratory effort and clear to auscultation bilaterally Cardio regular rate, regular rhythm, S1 normal heart sound, S2 normal heart sound and no murmurs GI soft to palpation, non-tender, non-distended and no masses Back/Spine no CVA tenderness Extremity Extremity Narrative: Full range of motion. Normal strength. No track hudson. No edema. No cellulitis. No abscesses. General Extremety ED: Negative for edema or tenderness General Extremity: Negative for edema Neuro oriented x3 and CN's II-XII intact bilaterally Sensorium / Orientation: alert, oriented to person, oriented to place and oriented to time Speech: speech normal Motor Exam: strength 5/5 throughout Psych mental status grossly normal and thought process normal Appearance: Negative for unkempt Skin General Skin Exam: Negative for jaundice or pallor Lesions: no lesions Rashes: no rashes MDM MDM MDM Narrative Medical decision making narrative: 29-year-old male history of IV fentanyl abuse is requesting inpatient detox. Exam is benign. Screening detox labs can be obtained. Of the hospitalist on page for admission. History & Record Review Discussion w/independent historian: Patient Additional record(s) reviewed:: Prior inpatient record and Prior labs Lab Data Lab results narrative: Labs are pending will be checked out to the hospitalist. Discharge Plan Dx/Rx/DC Orders Clinical Impression: Mild fentanyl abuse, Admitted to substance misuse detoxification center Disposition Disposition: Acute Care [facility]
--- NOTE | 2025-01-13 15:31 | PCM.HP.STD ---
HPI - General General Date of Admission: 01/13/25 Date of Service: 01/13/25 Chief Complaint: Opiate detox HPI Narrative KARSTEN VENTURA, is a 29 M who presented to [facility] ED on 01/13/2025 for opiate detox. Patient uses IV fentanyl on a daily basis. He has been on Suboxone in the past from an outpatient treatment program but is never been through detox in the hospital. Last use was yesterday night. He typically injects into his hands. No other significant medical history, not on any medications. Given desire for detox, hospitalist was contacted for admission. I saw the patient at bedside in the ED. He was sitting back fairly comfortably in bed, conversing normally, in no acute distress. Reports primary withdrawal symptoms of anxiety and nausea without vomiting. He smokes cigarettes and smokes marijuana on a regular basis as well. Denies significant alcohol use. No other acute concerns currently. Will be admitted for further management. PFSH Medical History Substance abuse Bipolar disorder Schizophrenia Anxiety Depression Hepatitis Smoker Home Medications ?Medication ?Instructions ?Recorded ?Last Taken ?Type NK 01/13/25 Unknown History Allergy/AdvReac Type Severity Reaction Status Date / Time Penicillins Allergy Hives Verified 01/13/25 14:41 ondansetron (From Zofran) AdvReac PT UNSURE Verified 01/13/25 16:42 OF REACTION Social History Smoking Status: Current every day smoker tobacco type: cigarettes ROS Constitutional Constitutional: Denies chills, fatigue or fever(s) Cardiovascular Cardiovascular: Denies chest pain Respiratory/Chest Respiratory/Chest: Denies shortness of breath at rest Gastrointestinal Gastrointestinal: Reports nausea; Denies abdominal pain, constipation, diarrhea or vomiting Musculoskeletal Musculoskeletal: Denies arthralgias or myalgias Neurologic Neurologic: Denies dizziness, focal weakness or headache(s) Vital Signs Vital Signs Vital Signs: 01/13/25 14:41 Temperature 98 F Temperature Source Temporal Pulse Rate 106 H Respiratory Rate 18 Blood Pressure 116/72 Blood Pressure Mean 86 Pulse Ox 99 Oxygen Delivery Method Room Air Weight Weight: 72.665 kg Body Mass Index (BMI) 22.9 Physical Exam Const alert, oriented x3, no apparent distress and average body habitus Constitutional Narrative: Pleasant younger male, sitting back fairly comfortably in bed, answering questions appropriately, in no acute distress. General Appearance: cooperative and comfortable HEENT normocephalic, head/scalp atraumatic, hearing grossly normal bilaterally, nasal mucous membranes and turbinates normal and moist oral mucous membranes Eyes PERRL, EOMs intact bilaterally and conjunctivae normal Neck full ROM Chest inspection of chest normal Resp normal respiratory effort, normal air movement, no use of accessory muscles and clear to auscultation bilaterally Cardio regular rate, regular rhythm, no murmurs and peripheral pulses 2+ throughout GI normal to inspection, nondistended, normoactive bowel sounds, soft to palpation, non-tender and non-distended Back/Spine normal ROM Extremity normal to inspection, full ROM and no pedal edema Skin Skin Narrative: No significant track hudson noted. Psych mental status grossly normal Results Lab / Micro Data 01/13/25 15:45 Assessment & Plan Assessment/Plan (1) Opiate abuse, continuous: (2) Desire for detoxification: (3) Elevated transaminase level: PLAN: Plan Patient is a 29-year-old male who presented to [facility] ED on 01/13/2025 for opiate detox. 1. Opiate abuse with withdrawal and desire for detox ? Admit under inpatient status to [facility]. Case management consulted. Reports daily IV fentanyl use. UDS positive for opiates, fentanyl and cannabis. Has used Suboxone through an outpatient treatment center in the past but has never gone through inpatient detox before. Last used on night prior to admission. Will treat with Subutex taper and other as needed medications per opiate withdrawal order set. Appreciate case management assistance. 2. Elevated transaminases ? T. bili 2.2, AST 301, ALT 323, alk phos 323 on admit. Last available labs were from 2019 and T. bili was mildly elevated then but LFTs were otherwise normal. Highest concern is for viral hepatitis secondary to IV drug use. Acute hepatitis panel sent. Patient denies any RUQ abdominal pain. Will hold on abdominal imaging at this time. Follow-up a.m. LFTs. 3. Tobacco dependence ? Nicotine patch ordered per patient request. Discussed cessation on discharge. 4. Marijuana use ? Discussed cessation of discharge. DVT prophylaxis: Low risk, ambulate CODE STATUS: Full code, verified Expected disposition: Home, TBD Total clinical time spent by myself addressing the patient's medical issues, reviewing all the data, and collaborating with patient's care team: 56 minutes. Charges/Coding Visit Charges Inpatient E&M: 36978 Init Hosp L2
[2025-01-13 15:40] VITALS: BP 108/72; PULSE 77; RESP 16; TEMP 36.7; O2SAT 98
--- NOTE | 2025-01-13 16:03 | CM.ED ---
Social Work SW met with patient who stated he has been through detox programs in the past. Patient states that he has been thinking about coming in for about a week. Patient states he has no questions regarding the program. Maricel Pizarro, LAB SUPPORT SERVICE TECH, [employer]
[2025-01-13 16:18] VITALS: BMI 22.8
[2025-01-13 16:25] LABS: Alcohol, Blood (Medical)-Serum < 10.1 mg/dL (<=10.0)
[2025-01-13 16:26] VITALS: BP 115/74; PULSE 84; RESP 14; TEMP 36.6; O2SAT 98
[2025-01-13 16:27] LABS: AST(SGOT) 301 U/L (<=37); Alanine Aminotransfer ALT/SGPT 323 U/L (<=46); Albumin, Serum 3.9 g/dL (3.5-5.0); Alkaline Phosphatase 223 U/L (40-129); Anion Gap 12 (5-15); BUN 12 mg/dL (4-19); BUN/Creat Ratio 19.6 RATIO (10-20); Calcium,Total 8.8 mg/dL (7.6-11.0); Carbon Dioxide 20.8 mmol/L (21.0-32.0); Chloride 104 mmol/L (98-108); Estimated Creatinine Clearance 183.72 ml/min (50-250); Globulin 3.5 g/dL (2.2-4.2); Glucose 108 mg/dL (70-99); Potassium 3.5 mmol/L (3.3-5.1)
[2025-01-13 16:34] LABS: Barbiturate Urine NEGATIVE (< 200 ng/mL); Benzodiazepine Urine NEGATIVE (< 200 ng/mL); PCP Urine NEGATIVE (< 25 ng/mL); THC Urine PRESUMPTIVE POSITIVE (< 50 ng/mL)
[2025-01-13] MEDS: Nicotine (PBKC) 14 MG Patch TD (17:44)
[2025-01-13] MEDS: hydrOXYzine PAM 25 MG Capsule 50 MG PO (17:44)
[2025-01-13 19:09] LABS: Hematocrit 37.1 % (40-54); Hemoglobin 12.7 g/dL (13.0-16.5); Immature Granulocytes Count 0.140 X10^3/uL (0.0-0.0); Mean Corp Hgb Conc 34.2 g/dL (32-36); Mean Corpuscular Volume 83.9 fL (80-94); Mean Platelet Vol. 9.0 fl (6.2-12.0); NRBC Flagged by Analyzer 0 % (0-5); Platelet Count 221 K/mm3 (150-450); RBC Distribution Width CV 14.4 % (11.6-14.6); RBC Distribution Width SD 44.2 fl (35.1-43.9); Red Blood Count 4.42 M/mm3 (4.6-6.2); White Blood Count 10.9 K/mm3 (4.4-11.0)
[2025-01-13 20:42] VITALS: BP 110/67; PULSE 79; RESP 18; TEMP 36.7; O2SAT 98
[2025-01-14 03:17] VITALS: BP 111/67; PULSE 74; RESP 18; TEMP 36.7; O2SAT 99
[2025-01-14] MEDS: hydrOXYzine PAM 25 MG Capsule 50 MG PO ×2 (03:21→15:10)
--- NOTE | 2025-01-14 07:25 | PCM.PN.HOSP ---
Reason for Visit Chief Complaint: Opiate detox Objective Data Objective Data Vital Signs: Vital Signs Temp Pulse Resp BP Pulse Ox O2 Del Method 98.1 F 74 18 111/67 99 Room Air 01/14/25 03:17 01/14/25 03:17 01/14/25 03:17 01/14/25 03:17 01/14/25 03:17 01/14/25 03:17 Oxygen Delivery Method Room Air Weight: 159 lb 1 oz Body Mass Index (BMI) 22.8 Intake & Output: Intake and Output for Last 24 Hours 01/12/25 01/13/25 01/14/25 23:59 23:59 23:59 Intake Total 400 / 400 Balance 400 / 400 Lab / Micro Data 01/13/25 18:58 01/13/25 15:45 Labs: Laboratory Results - last 24 hr 01/13/25 15:45: Sodium 137, Potassium 3.5, Chloride 104, Carbon Dioxide 20.8 L, Anion Gap 12, BUN 12, Creatinine 0.60 L, Estim Creat Clear Calc 183.72, Est GFR (MDRD) Non-Af 133, BUN/Creatinine Ratio 19.6, Glucose 108 H, Calcium 8.8, Total Bilirubin 2.21 H, AST 301 H, ALT 323 H, Alkaline Phosphatase 223 H, Total Protein 7.3, Albumin 3.9, Globulin 3.5, Albumin/Globulin Ratio 1.1, Urine Opiates Screen PRESUMPTIVE POSITIVE, U Buprenorphine Qual NEGATIVE, Ur Oxycodone Screen NEGATIVE, Urine Methadone Screen NEGATIVE, Urine Fentanyl Screen PRESUMPTIVE POSITIVE, Ur Barbiturates Screen NEGATIVE, Ur Phencyclidine Scrn NEGATIVE, Ur Amphetamines Screen NEGATIVE, U Benzodiazepines Scrn NEGATIVE, Urine Cocaine Screen NEGATIVE, U Cannabinoids Screen PRESUMPTIVE POSITIVE, Ethyl Alcohol < 10.1 01/13/25 18:58: WBC 10.9, RBC 4.42 L, Hgb 12.7 L, Hct 37.1 L, MCV 83.9, MCH 28.7, MCHC 34.2, RDW Std Deviation 44.2 H, RDW Coeff of Julio 14.4, Plt Count 221, MPV 9.0, Immature Gran % (Auto) 1.300 H, Neut % (Auto) 78.8 H, Lymph % (Auto) 11.9 L, Mercer % (Auto) 7.1, Eos % (Auto) 0.4, Baso % (Auto) 0.5, Absolute Neuts (auto) 8.6 H, Absolute Lymphs (auto) 1.30, Nucleated RBC % 0 Physical Exam Narrative Seen and examined Patient is doing well on buprenorphine. He said he does not feel any withdrawal symptoms Physical exam General: Alert, Oriented x3, Cooperative HEENT: Atraumatic, PERRLA, EOMI, Normocephalic. Oral: No Gingival or Mucosal Lesions/ Ulcerations Neck: Supple, No JVD, Negative Carotid Bruits Chest wall/Lungs: Air entry diminished in bilateral lung bases. No crepitation/rhonchi Cardiovascular: Regular rate and rhythm, Normal S1,S2, No M/G/R Abdomen: Bowel Sounds Present, Soft, Non Tender, Non-Distended : No dysuria. No renal angle tenderness. No suprapubic tenderness. Extremities: No edema, Capillary Refill Less than 3 Seconds Skin: No rashes, No breakdown Musculoskeletal: No Tenderness to Palpation of Joints or Extremities Neurological: Cranial nerves II-XII grossly intact, DTR 2+/4. No acute focal neurological deficit. Psych/Mental Status: Normal Affect, Appropriate. Assessment & Plan Assessment/Plan (1) Opiate abuse, continuous: (2) Desire for detoxification: (3) Elevated transaminase level: PLAN: Plan Patient is a 29-year-old male who presented to [facility] ED on 01/13/2025 for opiate detox. 1. Opiate abuse with withdrawal and desire for detox: Patient is being admitted on [facility] floor. ? The patient is started on buprenorphine along with other adjunctive medications as needed for medical stabilization as per order set of opioid withdrawal syndrome.Patient also on trazodone, hydroxyzine, gabapentin as needed ordered. Advised quitting opioid use. digital marketing program manager consult. UDS positive for opiates, fentanyl and cannabis. Has used Suboxone through an outpatient treatment center in the past but has never gone through inpatient detox before. Last used on night prior to admission. 01/14: Patient stated he wishes 1 to 1.5 g of IV fentanyl. He also uses marijuana and few times he used crack cocaine. He denies alcohol use. Denies other substance use. Smokes cigarettes half pack per day. 2. Elevated transaminases ? T. bili 2.2, AST 301, ALT 323, alk phos 323 on admit. Last available labs were from 2018 and T. bili was mildly elevated then but LFTs were otherwise normal. Highest concern is for viral hepatitis secondary to IV drug use. 01/14: Hepatitis panel pending. Liver chemistry shows elevated ALT AST, ALP. TB 2.21, direct 1.07 probably acute on chronic or chronic. No right upper quadrant tenderness. 3. Tobacco dependence ? Nicotine patch ordered per patient request. Discussed cessation on discharge. 4. Marijuana use ? Discussed cessation of discharge. DVT prophylaxis: Low risk, ambulate CODE STATUS: Full code, verified Charges/Coding Visit Charges Inpatient E&M: 79667 Subs Hosp L2
[2025-01-14 09:08] VITALS: BP 112/66; PULSE 71; RESP 16; TEMP 36.5; O2SAT 99
[2025-01-14] MEDS: FLU VACCINE 2025-26(6MOS UP) 45 MCG/0.5 ML SYRINGE IM (09:27)
[2025-01-14] MEDS: Nicotine (PBKC) 14 MG Patch TD (09:27)
[2025-01-14 10:10] LABS: Bilirubin, Direct 1.07 mg/dL (0.00-0.30)
--- NOTE | 2025-01-14 11:25 | ADDICTION ---
Met with pt to complete RAMP assessments. Pt reports that he has been struggling with this for 10+ years. Pt would like to try and intensive outpatient program. Pt is [facility]. TW attempted to schedule him an appointment for her d/c date. All appointments were full. Pt is schedule to go into a walk-in appointment Sunday morning at 10am.
[2025-01-14 15:03] VITALS: BP 103/61; PULSE 77; RESP 16; TEMP 36.7; O2SAT 100
--- NOTE | 2025-01-14 15:41 | CHAPLAIN ---
Type of Pastoral Visit _x__ Initial Visit ___ Follow-up Visit ___ On-call Visit ___ General Patient Visit ___ Spiritual Assessment ___ Family Conference ___ Bereavement ___ Rapid Response ___ Code Blue ___ Other (describe below) Pastoral Care Referral From _x__ Patient ___ Family ___ Nurse ___ Physician ___ Key Worker ___ Research Director ___ Other (describe below) Sacrament/Intervention _x__ Active listening ___ Anointing ___ Caodaism ___ Bereavement ___ Communion ___ Tatiana exploration ___ _x__ Life review _x__ Prayer ___ Reconciliation ___ Sacrament of Sick _x__ Supportive presence ___ Wedding ___ Other (describe below) Pastoral Comments patient was alert and was watching TV; pt is welcoming and gives a summary of his situation; pt has had a long stretch on two occasions of being clean; pt has had a relapse per his report and seeks help; pt has children that he wants to be with and to be active in their lives; pt has a girlfriend that is co parent; pt talks about his interests in sports and fishing; 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
[2025-01-14 21:00] VITALS: BP 104/67; PULSE 64; RESP 16; TEMP 36.8; O2SAT 100
[2025-01-15 03:00] VITALS: BP 99/63; PULSE 73; RESP 16; TEMP 36.8; O2SAT 99
[2025-01-15 06:45] LABS: AST(SGOT) 305 U/L (<=37); Alanine Aminotransfer ALT/SGPT 506 U/L (<=46); Albumin, Serum 3.5 g/dL (3.5-5.0); Alkaline Phosphatase 215 U/L (40-129); Bilirubin, Direct 0.60 mg/dL (0.00-0.30); Globulin 3.3 g/dL (2.2-4.2)
[2025-01-15 09:01] VITALS: BP 109/60; PULSE 74; RESP 16; TEMP 36.4; O2SAT 100
[2025-01-15] MEDS: hydrOXYzine PAM 25 MG Capsule 50 MG PO (09:14)
[2025-01-15] MEDS: Nicotine (PBKC) 14 MG Patch TD (09:14)
--- NOTE | 2025-01-15 17:15 | PCM.PN.HOSP ---
Reason for Visit Chief Complaint: Opiate detox Objective Data Objective Data Vital Signs: Vital Signs Temp Pulse Resp BP Pulse Ox O2 Del Method 97.6 F L 74 16 109/60 100 Room Air 01/15/25 09:01 01/15/25 09:01 01/15/25 09:01 01/15/25 09:01 01/15/25 09:01 01/15/25 09:01 Oxygen Delivery Method Room Air Weight: 159 lb 1 oz Body Mass Index (BMI) 22.8 Intake & Output: Intake and Output for Last 24 Hours 01/13/25 01/14/25 01/15/25 23:59 23:59 23:59 Intake Total 400 / 400 300 / 300 450 / 450 Balance 400 / 400 300 / 300 450 / 450 Lab / Micro Data 01/13/25 18:58 01/13/25 15:45 Labs: Laboratory Results - last 24 hr 01/15/25 05:51: Total Bilirubin 1.15, Direct Bilirubin 0.60 H, AST 305 H, ALT 506 H, Alkaline Phosphatase 215 H, Total Protein 6.9, Albumin 3.5, Globulin 3.3 Physical Exam Narrative Seen and examined Denies any acute symptoms of withdrawal. No abdominal pain Physical exam General: Alert, Oriented x3, Cooperative HEENT: Atraumatic, PERRLA, EOMI, Normocephalic. Oral: No Gingival or Mucosal Lesions/ Ulcerations Neck: Supple, No JVD, Negative Carotid Bruits Chest wall/Lungs: Air entry equal in bilateral lung bases. No crepitation/rhonchi Cardiovascular: Regular rate and rhythm, Normal S1,S2, No M/G/R Abdomen: Bowel Sounds Present, Soft, Non Tender, Non-Distended : No dysuria. No renal angle tenderness. No suprapubic tenderness. Extremities: No edema, Capillary Refill Less than 3 Seconds Skin: No rashes, No breakdown Musculoskeletal: No Tenderness to Palpation of Joints or Extremities Neurological: Cranial nerves II-XII grossly intact, DTR 2+/4. No acute focal neurological deficit. Psych/Mental Status: Normal Affect, Appropriate. Assessment & Plan Assessment/Plan (1) Opiate abuse, continuous: (2) Desire for detoxification: (3) Elevated transaminase level: PLAN: Plan Patient is a 29-year-old male who presented to [facility] ED on 01/13/2025 for opiate detox. 1. Opiate abuse with withdrawal and desire for detox: [facility] ? The patient is started on buprenorphine along with other adjunctive medications as needed for medical stabilization as per order set of opioid withdrawal syndrome.Patient also on trazodone, hydroxyzine, gabapentin as needed ordered. Advised quitting opioid use. used car manager consult. UDS positive for opiates, fentanyl and cannabis. Has used Suboxone through an outpatient treatment center in the past but has never gone through inpatient detox before. Last used on night prior to admission. 01/14: Patient stated he wishes 1 to 1.5 g of IV fentanyl. He also uses marijuana and few times he used crack cocaine. He denies alcohol use. Denies other substance use. Smokes cigarettes half pack per day. 2. Elevated transaminases ? T. bili 2.2, AST 301, ALT 323, alk phos 323 on admit. Last available labs were from 2019 and T. bili was mildly elevated then but LFTs were otherwise normal. Highest concern is for viral hepatitis secondary to IV drug use. 01/14: Hepatitis panel pending. Liver chemistry shows elevated ALT AST, ALP. TB 2.21, direct 1.07 probably acute on chronic or chronic. No right upper quadrant tenderness. 01/15: Total bilirubin 1.15 normal. AST ALT and alkaline phos are variable. ALT shows increased from 323-506. AST normal. ALP decreasing. 3. Tobacco dependence ? Nicotine patch ordered per patient request. Discussed cessation on discharge. 4. Marijuana use ? Discussed cessation of discharge. DVT prophylaxis: Low risk, ambulate CODE STATUS: Full code, verified 01/15/25 05:51: Total Bilirubin 1.15, Direct Bilirubin 0.60 H, AST 305 H, ALT 506 H, Alkaline Phosphatase 215 H, Total Protein 6.9, Albumin 3.5, Globulin 3.3 Charges/Coding Visit Charges Inpatient E&M: 18333 Subs Hosp L2
[2025-01-15 18:54] VITALS: BP 101/54; PULSE 82; RESP 16; TEMP 36.7; O2SAT 98
[2025-01-15 21:26] VITALS: BP 105/70; PULSE 77; RESP 15; TEMP 36.7; O2SAT 100
[2025-01-16 04:00] VITALS: O2SAT 98
[2025-01-16 07:06] VITALS: O2SAT 97
[2025-01-16 07:30] LABS: AST(SGOT) 144 U/L (<=37); Alanine Aminotransfer ALT/SGPT 389 U/L (<=46); Albumin, Serum 3.6 g/dL (3.5-5.0); Alkaline Phosphatase 227 U/L (40-129); Bilirubin, Direct 0.27 mg/dL (0.00-0.30); Globulin 3.3 g/dL (2.2-4.2)
[2025-01-16 08:17] VITALS: BP 99/57; PULSE 67; RESP 16; TEMP 36.6; O2SAT 100
[2025-01-16] MEDS: Nicotine (PBKC) 14 MG Patch TD (08:23)
--- NOTE | 2025-01-16 11:13 | DCINST_ITS ---
Discharge Instructions DC O2, CPAP, BIPAP needs Home O2 Discharge instructions: No Dressing / Incision Discharge Activity: Return to Normal Activity Weight Bearing Status: Weight bearing as tolerated Dressing / Incision Call your doctor if you observe: Fever of 101 or Higher, Coldness, Increased Pain, Numbness or Tingling, Change in Color, Inability to urinate, Inability to have a bowel movement, Shortness of breath, Dizziness, Fainting spells, Swelling in the ankles, Chest pain, Prolonged hiccupping, Increased palpitations (irregular heartbeat) and Calf discomfort Follow Up Care When: IN 2 WEEKS Test Results: Test results from this visit will be discussed in further detail at your follow- up appointment, if applicable. Discharge Plan Admission Admit Date/Time: 01/13/25 15:38 Attending Provider: Nico Cervantes Primary Care Provider: Care Physician,No Primary Consulting Providers: Duglas Muro Discharge Orders/Prescriptions Prescriptions: Continued NK Referrals / Follow Up: Care Physician,No Primary [Primary Care Provider, Medical] Elvie Maya PA [Med Staff - [facility] Practice Prof, Gastroenterology] - Within 1 Month Referral Note: for Hep C Disposition Disposition (needs filled in before D/C Order can be placed): Home, Self Care
--- NOTE | 2025-01-16 13:15 | PCM.DC.SUM ---
Providers Date of Admission: 01/13/25 Date of Discharge: 01/16/25 Primary Care Physician: No Primary Care Phys Reason For Visit: OPIATE DETOX Diagnosis Discharge Diagnosis (1) Opiate abuse, continuous: Status: Acute Code(s): F11.10 - Opioid abuse, uncomplicated (2) Desire for detoxification: Status: Acute (3) Elevated transaminase level: Status: Acute Code(s): R74.01 - Elevation of levels of liver transaminase levels Plan Patient is a 29-year-old male who presented to [facility] ED on 01/13/2025 for opiate detox. 1. Opiate abuse with withdrawal and desire for detox: [facility] ? The patient is started on buprenorphine along with other adjunctive medications as needed for medical stabilization as per order set of opioid withdrawal syndrome.Patient also on trazodone, hydroxyzine, gabapentin as needed ordered. Advised quitting opioid use. transport manager consult. UDS positive for opiates, fentanyl and cannabis. Has used Suboxone through an outpatient treatment center in the past but has never gone through inpatient detox before. Last used on night prior to admission. 01/14: Patient stated he wishes 1 to 1.5 g of IV fentanyl. He also uses marijuana and few times he used crack cocaine. He denies alcohol use. Denies other substance use. Smokes cigarettes half pack per day. 01/16: Withdrawal symptoms have resolved. Follow-up outpatient opioid rehab 180. 2. Elevated transaminases most likely due to suspect chronic viral hepatitis ? T. bili 2.2, AST 301, ALT 323, alk phos 323 on admit. Last available labs were from 2019 and T. bili was mildly elevated then but LFTs were otherwise normal. Highest concern is for viral hepatitis secondary to IV drug use. 01/14: Hepatitis panel pending. Liver chemistry shows elevated ALT AST, ALP. TB 2.21, direct 1.07 probably acute on chronic or chronic. No right upper quadrant tenderness. 01/15: Total bilirubin 1.15 normal. AST ALT and alkaline phos are variable. ALT shows increased from 323-506. AST normal. ALP decreasing. 01/16: AST and ALT are decreasing trend. ALP plateaued. Total bilirubin normal. Hepatitis panel pending. Advised to follow-up in GI office in 1 month. 3. Tobacco dependence ? Nicotine patch ordered per patient request. Discussed cessation on discharge. 4. Marijuana use ? Discussed cessation of discharge. DVT prophylaxis: Low risk, ambulate CODE STATUS: Full code, verified Discharge 01/15/25 05:51: Total Bilirubin 1.15, Direct Bilirubin 0.60 H, AST 305 H, ALT 506 H, Alkaline Phosphatase 215 H, Total Protein 6.9, Albumin 3.5, Globulin 3.3 Medications at Discharge Home Medications NK 01/13/25 Hospital Course Summary of Care Provided Hospital Course: Laboratory Results 01/16/25 06:14: Total Bilirubin 0.71, Direct Bilirubin 0.27, AST 144 H, ALT 389 H, Alkaline Phosphatase 227 H, Total Protein 6.9, Albumin 3.6, Globulin 3.3 Physical Exam Narrative Seen and examined Denies any acute symptoms of withdrawal. No abdominal pain Physical exam General: Alert, Oriented x3, Cooperative HEENT: Atraumatic, PERRLA, EOMI, Normocephalic. Oral: No Gingival or Mucosal Lesions/ Ulcerations Neck: Supple, No JVD, Negative Carotid Bruits Chest wall/Lungs: Air entry equal in bilateral lung bases. No crepitation/rhonchi Cardiovascular: Regular rate and rhythm, Normal S1,S2, No M/G/R Abdomen: Bowel Sounds Present, Soft, Non Tender, Non-Distended : No dysuria. No renal angle tenderness. No suprapubic tenderness. Extremities: No edema, Capillary Refill Less than 3 Seconds Skin: No rashes, No breakdown Musculoskeletal: No Tenderness to Palpation of Joints or Extremities Neurological: Cranial nerves II-XII grossly intact, DTR 2+/4. No acute focal neurological deficit. Psych/Mental Status: Normal Affect, Appropriate. Weight / BMI Weight Weight: 159 lb 1 oz Body Mass Index (BMI) 22.8 ABG / Lab / Microbiology Data 01/13/25 18:58 01/13/25 15:45 Laboratory: Laboratory Results - last 24 hr 01/16/25 06:14: Total Bilirubin 0.71, Direct Bilirubin 0.27, AST 144 H, ALT 389 H, Alkaline Phosphatase 227 H, Total Protein 6.9, Albumin 3.6, Globulin 3.3 D/C Instructions Weight Bearing Status: Weight bearing as tolerated Call your doctor if you observe: Fever of 101 or Higher, Coldness, Increased Pain, Numbness or Tingling, Change in Color, Inability to urinate, Inability to have a bowel movement, Shortness of breath, Dizziness, Fainting spells, Swelling in the ankles, Chest pain, Prolonged hiccupping, Increased palpitations (irregular heartbeat) and Calf discomfort DC O2, CPAP, BIPAP Needs Home O2 Discharge instructions: No When: IN 2 WEEKS Meaningful Use Info Meaningful Use Meaningful Use Diagnoses (Choose all that apply): None applicable Discharge Plan Admission Admit Date/Time: 01/13/25 15:38 Attending Provider: Nico Cervantes Primary Care Provider: Care Physician,Nat Primary Consulting Providers: Duglas Muro Discharge Orders/Prescriptions Prescriptions: Continued NK Referrals / Follow Up: Care Physician,No Primary [Primary Care Provider, Medical] Elvie Maya PA [Med Staff - Adv Practice Prof, Gastroenterology] - Within 1 Month Referral Note: for Hep C Disposition Disposition (needs filled in before D/C Order can be placed): Home, Self Care Charges/Coding Visit Charges Inpatient E&M: 37090 Disch Hosp >30min
[2025-01-16 13:37] VITALS: BP 106/74; PULSE 88; RESP 16; TEMP 37.1; O2SAT 97
[2025-01-17 16:09] LABS: HEPATITIS B SURFACE AG Negative (Negative); Hep C Antibodies Reactive (Non Reactive)
== END 2025-01-16 13:39 | disposition home or self-care (01) | DRG 773 ==
LOC: ED 15:28 → MS3 15:58
PROVIDERS: Admitting Provider Hospitalist; Emergency Provider Emergency Medicine; Visit Provider Internal Medicine
DX: F11.13 Opioid abuse with withdrawal (principal); F31.9 Bipolar disorder, unspecified; B18.9 Chronic viral hepatitis, unspecified; F20.9 Schizophrenia, unspecified; F12.90 Cannabis use, unspecified, uncomplicated; F17.210 Nicotine dependence, cigarettes, uncomplicated
CPT/HCPCS: 36415; 80048; 80053; 80074; 80076; 80307; 82077; 82248; 85025; 99283; 99406